=== PATIENT | male | born 1935 | race Caucasian/White ===

== ENCOUNTER 2019-09-17 10:23 | Inpatient (IN) ==
--- NOTE | 2019-09-17 11:24 | XRay Report ---
XR chest 1V portable CLINICAL HISTORY: Chest Pain nausea COMPARISON STUDY: 09/12/2011 FINDINGS: Components of congestive heart failure. There is present. Moderate cardiomegaly. Prominent pulmonary vasculature. Small left pleural effusion. Minimal right effusion. IMPRESSION: Congestive heart failure. Small bilateral pleural effusions. ACT 112: Negative or not required by law. The above report was generated using voice recognition software. It may contain grammatical, syntax or spelling errors. Electronically signed by: Rishi Lynch M.D. 09/17/2019 11:22 AM
[2019-09-17 11:35] LABS: INR 1.1 (0.9-1.1); Partial Thromboplastin Time 26.6 Seconds (21.0-31.0)
[2019-09-17 11:44] LABS: Albumin Level 3.6 gm/dl (3.4-5.0); BUN Creatinine Ratio 19.9 (10-20); Calcium 8.9 mg/dl (8.5-10.1); Creatinine Clr Calc Pharmacy 62.9 ml/min; Est GFR (African American) 86.1; Est GFR (Non-African American) 74.2
[2019-09-17 11:50] LABS: Albumin Globulin Ratio 0.9 (0.9-2); Bilirubin,Total 0.7 mg/dl (0.2-1); Total Protein 7.6 gm/dl (6.4-8.2); Troponin I 0.29 ng/ml (0-0.045)
[2019-09-17] MEDS ORDERED: ASPIRIN CHEW 324 MG PO STA (11:58)
[2019-09-17] MEDS ORDERED: METOPROLOL TARTRATE 1 MG/ML VIAL IV STA (11:58)
[2019-09-17] MEDS ORDERED: HEPARIN SODIUM/DEXTROSE 25,000 UNITS/500 ML BAG IV SCH (12:00)
[2019-09-17] MEDS ORDERED: METOPROLOL TARTRATE 1 MG/ML VIAL IV PRN (12:00)
[2019-09-17] MEDS ORDERED: Heparin IV Low Dose WITH Bolus IV STA (12:01)
[2019-09-17] MEDS ORDERED: HEPARIN SOD 5,000 UNIT/0.5 ML VIAL ONE (12:22)
[2019-09-17] MEDS: HEPARIN SODIUM/DEXTROSE 25,000 UNITS/500 ML BAG IV SCH (12:28)
--- NOTE | 2019-09-17 13:37 | History & Physical Report ---
Date of Service September 17, 2019 Assessment & Plan (1) CHF (congestive heart failure): Patient with apparent CHF radiographically and on exam. Historically has been noncompliant with medications. Will admit to a telemetry bed. Start slow diuresis with Lasix 40 mg IV daily. 1500 cc fluid restriction needs 2D echo to evaluate heart murmur. Check TSH, fasting lipids, hemoglobin A1c. We will ask cardiology to evaluate for further recommendations. (2) Non-ST elevation PA (NSTEMI): Elevated troponin. May be secondary to significant murmur and CHF. Agree with the ER physician and starting heparin drip. Patient was also given metoprolol and aspirin. Will trend cardiac enzymes. Ask cardiology as noted above further recommendations. History of Present Illness Primary Care Provider: NO PCP This is AN 83-year-old Sikh male that presents today complaining of worsening shortness of breath. Patient is accompanied by family members but all are very poor historians. History documented as able. Patient tells me has been having shortness of breath for approximately 1 week. This does not appear to be associated with chest pain, weight gain, or other features. He denies any recent febrile illness. He states that he is on no medications and that he is only on "herbs". Thinks he may be "full of fluid ". Further history could not be elicited from the patient and family. I do look back at old records and see if the patient was seen by a B[facility] T[facility]ER outpatient setting. This was on July 09, 2019. At that time he had presented with CHF along with possible aortic stenosis. He was advised to go to the emergency room for further evaluation. The patient was agreeable at that time but when I questioned the patient about it he does not seem to recall this visit and did not seek medical attention at that time. Allergies Allergy/AdvReac Type Severity Reaction Status Date / Time Penicillins Allergy Verified 09/17/19 10:56 Home Medications Home Medications Medication Instructions Recorded Confirmed Type [place] Powder 5 cap PO QAM 09/17/19 09/17/19 History Potassium 99mg 99 mg PO BID 09/17/19 09/17/19 History aspirin [Aspir-81] 81 mg PO HS 09/17/19 09/17/19 History coenzyme Q10 [CoQ-10] 0 mg PO DAILY 09/17/19 09/17/19 History cyanocobalamin (vitamin B-12) 1,000 mcg PO BID 09/17/19 09/17/19 History [Vitamin B-12] folic acid 0.8 mg PO BID 09/17/19 09/17/19 History Past Med/Surg History Medical History 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) Diastolic dysfunction (Acute 05/01/11) Hemolytic anemia (Acute 05/01/11) History of pleural effusion (Acute 05/01/11) Systolic dysfunction (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) Surgical History History of appendectomy Social History Preferred Language: Sri Lankan Communication Ability: Effective Director Of Graduate Admissions Required: No Beliefs That Will Affect Care: None Current Living Situation: Spouse and Family Other Information That Helps Us Care for You: No Feels Safe at Home: Yes Safety Concerns: Feels Safe At This Time Smoking Status: Never smoker Hx Alcohol Use: No Hx Substance Use: No Review of Systems Constitutional: no fever, no chills, no weakness, no weight loss and no weight gain Eyes: as per Subjective / HPI Respiratory: + dyspnea on exertion; no cough, no chest congestion and no dyspnea Cardiovascular: + dyspnea on exertion and + edema; no chest pain, no orthopnea, no palpitations and no lightheadedness Gastrointestinal: no abdominal pain, no nausea, no vomiting, no constipation and no diarrhea/loose stools Musculoskeletal: no back pain, no neck pain, no joint pain, no stiffness and no myalgia Integumentary: no rash Neurologic: no gait abnormality, no unsteadiness, no falls and no generalized weakness Physical Exam Constitutional: cooperative; no acute distress Neck: trachea midline, no thyromegaly Respiratory: normal respiratory effort Auscultation: + diminished lung sounds, + crackles and + rales; no rhonchi and no wheezes Cardiovascular: Rate/Rhythm: regular rate and regular rhythm Heart Sounds: normal S1, normal S2 and + murmur (Loud systolic ejection murmur) Vessels: + JVD Extremities: + edema (12+ pitting edema lower extremities) Gastrointestinal (Abdomen): Inspection/Auscultation: abdomen normal to inspection Percussion/Palpation: abdomen soft; abdomen nontender, no guarding, abdomen not rigid and no hepatosplenomegaly Musculoskeletal: Extremities: no clubbing Skin: no rashes, warm and dry Results & Data Vital Signs (Past 12 Hours) Vital Signs Temp Pulse Resp BP Pulse Ox 09/17/19 13:01 86 30 H 95 09/17/19 13:00 82 21 128/81 92 09/17/19 12:55 88 L 09/17/19 12:32 100 H 27 H 09/17/19 12:31 105 H 21 134/76 91 09/17/19 12:30 93 H 28 H 09/17/19 12:28 118 H 146/91 H 09/17/19 12:16 113 H 25 H 146/91 H 92 09/17/19 12:00 122 H 25 H 150/96 H 09/17/19 11:30 129 H 32 H 140/97 90 09/17/19 11:15 94 09/17/19 11:01 109 H 33 H 90 09/17/19 11:00 103 H 31 H 145/74 H 91 09/17/19 10:48 96 H 26 H 92 09/17/19 10:46 86 26 H 145/87 H 90 09/17/19 10:30 36.3 C L 120 H 20 137/75 93 Laboratory Results Sodium 139, creatinine 0.95 with a BUN of 19. Troponin is 0.290. CBC is pending Diagnostic Findings XR chest 1V portable CLINICAL HISTORY: Chest Pain nausea COMPARISON STUDY: 09/12/2011 FINDINGS: Components of congestive heart failure. There is present. Moderate cardiomegaly. Prominent pulmonary vasculature. Small left pleural effusion. Minimal right effusion. IMPRESSION: Congestive heart failure. Small bilateral pleural effusions. PG Care Time/CCT Total # of Minutes Spent Total Time Spent with Patient: Total time spent is greater than 50% in coordination of care (as documented) at patient's floor/unit and/or counseling patient: Coding Level of Care Code 91958 Initial Inpt Care Lvl 3 Diagnoses CHF (congestive heart failure) I50.9 Heart failure chronicity: acute Heart failure type: unspecified Non-ST elevation PA (NSTEMI) I21.4 (1) CHF (congestive heart failure) Heart failure chronicity: acute Heart failure type: unspecified Qualified Code(s): I50.9 - Heart failure, unspecified
[2019-09-17 14:30] LABS: Basophils # (auto) 0.06 K/uL (0-0.2); Basophils % (auto) 0.8 %; Eosinophils # (auto) 0.15 K/uL (0-0.5); Eosinophils % (auto) 1.9 %; Hematocrit (blood only) 44.3 % (42-52); Hemoglobin 14.6 g/dL (14.0-18.0); Immature Granulocytes # (auto) 0.02 K/uL (0.00-0.02); Immature Granulocytes % (auto) 0.3 %; Lymphocytes # (auto) 1.28 K/uL (1.2-3.4); Lymphocytes % (auto) 16.6 %; Mean Corpuscular Hemoglobin 28.2 pg (25-34); Mean Corpuscular Volume 85.7 fL (80-100); Mean Platelet Volume 10.7 fL (7.4-10.4); Monocytes # (auto) 0.88 K/uL (0.11-0.59); Monocytes % (auto) 11.4 %; Neutrophils # (auto) 5.34 K/uL (1.4-6.5); Platelet Count 184 K/uL (130-400); RDW Coefficient of Variation 15.4 % (11.5-14.5); RDW Standard Deviation 48.3 fL (36.4-46.3); Red Blood Count 5.17 M/uL (4.7-6.1); White Blood Count 7.73 K/uL (4.8-10.8)
[2019-09-17] MEDS ORDERED: NITROGLYCERIN SL 0.4 MG/TAB TAB SL PRN (15:44)
[2019-09-17] MEDS ORDERED: ACETAMINOPHEN 325 MG TAB PO PRN (15:44)
[2019-09-17] MEDS ORDERED: FUROSEMIDE 40 MG/4 ML VIAL IV STA (15:44)
[2019-09-17] MEDS ORDERED: ONDANSETRON INJ 2 MG/ML 2 ML VIAL IV PRN (15:44)
[2019-09-17] MEDS ORDERED: FUROSEMIDE 40 MG in SYRINGE 0 ML IV ONE (16:00)
--- NOTE | 2019-09-17 16:41 | Emergency Department Note ---
Entered by Yue Hooks acting as a scribe for Tres Cisneros DO History of Present Illness General Chief complaint: Cardiac Assessment Stated complaint: afib sent by [facility] Source: patient History of Present Illness Onset (ago): week(s) 1 Location: left (lung) and right (lung) Pain Consistency: + other (persistent) Quality: + other (shortness of breath) Relieved By: + other (sitting up straight) Exacerbated By: + other (lying flat) Associated symptoms: + cough and + shortness of breath; no chest pain, no fever/ chills and no nausea/vomiting Treatments prior to arrival: none The patient is an 83 year old male presenting to the Emergency Department co mplaining of persistent shortness of breath starting 1 week ago. The patient reports that he is short of breath. He states that he has a cough that sometimes produces a mucous. He explains that his shortness of breath worsens when he lies flat and improves when he sitting up. 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 He adds that he doesnt follow with a PCP and went to [facility] REACTOR TECHNICIAN who referred the patient to the [facility] Emergency Department. The patient reports that he has been smoking pipe his entire life. He states that he smokes his pipe about 6 times per day. He notes that he doesnt want CPR if he were to go into cardiac arrest. The patient denies chest pain, fevers, chills, nausea, vomiting and abdominal pain. Home Medications Home Medications Medication Instructions Recorded Confirmed Type [place] Silk Powder 5 cap PO QAM 09/17/19 09/17/19 History Potassium 99mg 99 mg PO BID 09/17/19 09/17/19 History aspirin [Aspir-81] 81 mg PO HS 09/17/19 09/17/19 History coenzyme Q10 [CoQ-10] 0 mg PO DAILY 09/17/19 09/17/19 History cyanocobalamin (vitamin B-12) 1,000 mcg PO BID 09/17/19 09/17/19 History [Vitamin B-12] folic acid 0.8 mg PO BID 09/17/19 09/17/19 History Allergies Allergy/AdvReac Type Severity Reaction Status Date / Time Penicillins Allergy Verified 09/17/19 10:56 Past Med/Surg History Medical History 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) Diastolic dysfunction (Acute 05/01/11) Hemolytic anemia (Acute 05/01/11) History of pleural effusion (Acute 05/01/11) Systolic dysfunction (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) Surgical History History of appendectomy Social History Preferred Language: Irish Communication Ability: Effective Bead Supervisor Required: No Beliefs That Will Affect Care: None Current Living Situation: Spouse and Family Other Information That Helps Us Care for You: No Feels Safe at Home: Yes Safety Concerns: Feels Safe At This Time Smoking Status: Never smoker Hx Alcohol Use: No Hx Substance Use: No Review of Systems See HPI for pertinent positives & negatives. and A total of 10 systems reviewed and were otherwise negative Physical Exam Vital Signs Vital Signs - 24 hr 09/17/19 10:30 09/17/19 10:46 09/17/19 10:48 Temperature 36.3 C L Temperature Source Oral Pulse Rate 120 H 86 96 H Pulse Rate from SpO2 Sensor 90 102 H Respiratory Rate 20 26 H 26 H Respiratory Effort / Characteristics Non-Labored Spontaneous Respiratory Depth Normal Respiratory Pattern Regular Blood Pressure 137/75 145/87 H Blood Pressure Mean 95 125 Blood Pressure Position Sitting Pulse Oximetry 93 90 92 Oxygen Delivery Method Room Air Room Air Room Air Oxygen Flow Rate Sepsis Recent Fever Within 48 Hours No Sepsis New/Unexplained Change in Mental Status No Sepsis Action Taken by Nursing No Action Required 09/17/19 11:00 09/17/19 11:01 09/17/19 11:15 Temperature Temperature Source Pulse Rate 103 H 109 H Pulse Rate from SpO2 Sensor 100 H 99 H Respiratory Rate 31 H 33 H Respiratory Effort / Characteristics Respiratory Depth Respiratory Pattern Blood Pressure 145/74 H Blood Pressure Mean 82 Blood Pressure Position Pulse Oximetry 91 90 94 Oxygen Delivery Method Room Air Room Air Room Air Oxygen Flow Rate Sepsis Recent Fever Within 48 Hours Sepsis New/Unexplained Change in Mental Status Sepsis Action Taken by Nursing 09/17/19 11:30 09/17/19 12:00 09/17/19 12:16 Temperature Temperature Source Pulse Rate 129 H 122 H 113 H Pulse Rate from SpO2 Sensor 122 H 110 H Respiratory Rate 32 H 25 H 25 H Respiratory Effort / Characteristics Respiratory Depth Respiratory Pattern Blood Pressure 140/97 150/96 H 146/91 H Blood Pressure Mean 113 123 99 Blood Pressure Position Pulse Oximetry 90 92 Oxygen Delivery Method Room Air Oxygen Flow Rate Sepsis Recent Fever Within 48 Hours Sepsis New/Unexplained Change in Mental Status Sepsis Action Taken by Nursing 09/17/19 12:28 09/17/19 12:30 09/17/19 12:31 Temperature Temperature Source Pulse Rate 118 H 93 H 105 H Pulse Rate from SpO2 Sensor 109 H Respiratory Rate 28 H 21 Respiratory Effort / Characteristics Respiratory Depth Respiratory Pattern Blood Pressure 146/91 H 134/76 Blood Pressure Mean 94 Blood Pressure Position Pulse Oximetry 91 Oxygen Delivery Method Room Air Oxygen Flow Rate Sepsis Recent Fever Within 48 Hours Sepsis New/Unexplained Change in Mental Status Sepsis Action Taken by Nursing 09/17/19 12:32 09/17/19 12:55 09/17/19 13:00 Temperature Temperature Source Pulse Rate 100 H 82 Pulse Rate from SpO2 Sensor 127 H Respiratory Rate 27 H 21 Respiratory Effort / Characteristics Respiratory Depth Respiratory Pattern Blood Pressure 128/81 Blood Pressure Mean 88 Blood Pressure Position Pulse Oximetry 88 L 92 Oxygen Delivery Method Room Air Nasal Cannula Oxygen Flow Rate 4 Sepsis Recent Fever Within 48 Hours Sepsis New/Unexplained Change in Mental Status Sepsis Action Taken by Nursing 09/17/19 13:01 09/17/19 13:30 Temperature Temperature Source Pulse Rate 86 82 Pulse Rate from SpO2 Sensor 174 H 90 Respiratory Rate 30 H 28 H Respiratory Effort / Characteristics Respiratory Depth Respiratory Pattern Blood Pressure 142/68 H Blood Pressure Mean 73 Blood Pressure Position Pulse Oximetry 95 93 Oxygen Delivery Method Nasal Cannula Nasal Cannula Oxygen Flow Rate 4 4 Sepsis Recent Fever Within 48 Hours Sepsis New/Unexplained Change in Mental Status Sepsis Action Taken by Nursing GENERAL: Patient is sitting up in bed. Chronically ill appearing. Nasal cannula in place. EYE EXAM: normal conjunctiva. OROPHARYNX: no exudate, no erythema, lips, buccal mucosa, and tongue normal and mucous membranes are moist NECK: supple, no nuchal rigidity, no adenopathy, non-tender LUNGS: Faint rhonchi bilaterally. Normal chest wall mechanics HEART: +ANAHI, irregularly irregular ABDOMEN: abdomen soft, non-tender, normo-active bowel sounds, no masses, no rebound or guarding. BACK: Back is symmetrical on inspection and there is no deformity, no midline tenderness, no CVA tenderness. SKIN: no rashes and no bruising UPPER EXTREMITIES: upper extremities are grossly normal. LOWER EXTREMITIES: Mild pitting edema. NEURO EXAM: Normal sensorium, cranial nerves II-XII grossly intact, normal speech, no gross weakness of arms, no gross weakness of legs. Course Course ED COURSE: Vital signs were reviewed and showed tachycardia. The patients medical record was reviewed The above diagnostic studies were performed and reviewed. ED treatments and interventions as stated above. 1106: The patient was evaluated in room B4B. A complete history and physical examination was performed. 1157: I discussed the patients case with Dr. Clemens aquatics instructor. He recommends lowing the patients rate down. He reports that the patient doesnt need cardiac catheterization at this time. 1221: I discussed the patients case with Dr. Atif DAVIS hospitalist. He will evaluate the patient for further management. 1230: I updated the patient at this time. He denied bleeding risk factors. 1255: Upon reevaluation, I discussed my findings with the patient and he unde rstands and agrees with the treatment plan. Based on the patients age, coexisting illnesses, exam and lab findings the decision to treat as an inpatient was made. The patient remained stable while under my care. The patient will be evaluated for further management. Administered Medications Heparin Sodium/Dextrose (Heparin Sodium/Dextrose) 25,000 units in 500 mls @ 18 mls/hr IV .Q24H [facility]; Protocol Stop: 10/17/19 12:14 Last Admin: 09/17/19 12:28 Dose: 900 units/hr, 18 mls/hr Documented by: [id number] Cosigned by: [id number] Metoprolol Tartrate (Lopressor) 5 mg IV Q5M PRN PRN Reason: Tachycardia Stop: 10/17/19 11:59 Last Admin: 09/17/19 12:28 Dose: 5 mg Documented by: [id number] Discontinued Medications Aspirin (Aspirin) 324 mg PO NOW STA Stop: 09/17/19 11:59 Last Admin: 09/17/19 12:26 Dose: 324 mg Documented by: [id number] Heparin Sodium (Porcine) (Heparin Sodium (Porcine)) Confirm Administered Dose 5,000 units .ROUTE .STK-MED ONE Stop: 09/17/19 12:23 Last Admin: 09/17/19 12:28 Dose: 4,000 units Documented by: [id number] Cosigned by: [id number] Heparin Sodium/Dextrose () 1 ea IV NOW STA; Protocol Stop: 09/17/19 12:02 Last Admin: 09/17/19 12:30 Dose: Not Given Documented by: [id number] Metoprolol Tartrate (Lopressor) 2.5 mg IV NOW STA Stop: 09/17/19 11:59 Last Admin: 09/17/19 12:45 Dose: Not Given Documented by: [id number] Critical Care Time Critical Care Time: Yes Total Critical Care Time: 75 I have personally spent 75 minutes of critical care time in the direct management of this patient. This includes bedside care, interpretation of diagnostic studies, and testing, discussion with consultants, patient, and family members, and other required patient management activities. This 75 minutes is in excess of all separately billable procedures. Medical Decision Making Differential Diagnosis Differential diagnoses includes but is not limited to pneumonia, bronchitis, COPD/Asthma exacerbation, pneumothorax, pulmonary embolism, congestive heart fa ilure, acute coronary syndrome. Medical Records Attestation: I reviewed the patient's medical records. Home Medications Current Medication List: was personally reviewed by me Laboratory Data Attestation: I reviewed the patient's lab results. Result diagrams: 09/17/19 11:00 09/17/19 11:00 Lab Results 09/17/19 09/17/19 09/17/19 Range/Units 11:00 11:00 11:00 WBC 7.73 (4.8-10.8) K/uL RBC 5.17 (4.7-6.1) M/uL Hgb 14.6 (14.0-18.0) g/dL Hct 44.3 (42-52) % MCV 85.7 (80-100) fL MCH 28.2 (25-34) pg MCHC 33.0 (32-36) g/dL RDW Std Deviation 48.3 H (36.4-46.3) fL RDW Coeff of Luis 15.4 H (11.5-14.5) % Plt Count 184 (130-400) K/uL MPV 10.7 H (7.4-10.4) fL Immature Gran % (Auto) 0.3 % Neut % (Auto) 69.0 % Lymph % (Auto) 16.6 % Hayes % (Auto) 11.4 % Eos % (Auto) 1.9 % Baso % (Auto) 0.8 % Immature Gran # (Auto) 0.02 (0.00-0.02) K/uL Neut # (Auto) 5.34 (1.4-6.5) K/uL Lymph # (Auto) 1.28 (1.2-3.4) K/uL Hayes # (Auto) 0.88 H (0.11-0.59) K/uL Eos # (Auto) 0.15 (0-0.5) K/uL Baso # (Auto) 0.06 (0-0.2) K/uL PT 11.0 (9.0-12.0) Seconds INR 1.1 (0.9-1.1) APTT 26.6 (21.0-31.0) Seconds PTT Ratio 1.0 Sodium 139 (136-145) mmol/L Potassium 4.0 (3.5-5.1) mmol/L Chloride 108 H (98-107) mmol/L Carbon Dioxide 24 (21-32) mmol/L Anion Gap 7.0 (3-11) BUN 19 H (7-18) mg/dl Creatinine 0.95 (0.6-1.4) mg/dl Est Cr Clr Drug Dosing 62.9 ml/min Est GFR ( Amer) 86.1 Est GFR (Non-Af Amer) 74.2 BUN/Creatinine Ratio 19.9 (10-20) Glucose 93 (70-99) mg/dl Calcium 8.9 (8.5-10.1) mg/dl Total Bilirubin 0.7 (0.2-1) mg/dl AST 21 (15-37) U/L ALT 31 (12-78) U/L Alkaline Phosphatase 100 (45-117) U/L Troponin I 0.290 H* (0-0.045) ng/ml Total Protein 7.6 (6.4-8.2) gm/dl Albumin 3.6 (3.4-5.0) gm/dl Globulin 4.0 (2.5-4.0) gm/dl Albumin/Globulin Ratio 0.9 (0.9-2) Lipase 44 L (73-393) U/L Imaging Data Radiologist's Impression: Radiology results as stated below per my review and the radiologist's interpretation: XR chest 1V portable CLINICAL HISTORY: Chest Pain nausea COMPARISON STUDY: 09/12/2011 FINDINGS: Components of congestive heart failure. There is present. Moderate cardiomegaly. Prominent pulmonary vasculature. Small left pleural effusion. Minimal right effusion. IMPRESSION: Congestive heart failure. Small bilateral pleural effusions. ACT 112: Negative or not required by law. The above report was generated using voice recognition software. It may contain grammatical, syntax or spelling errors. Electronically signed by: Rishi Lynch M.D. 09/17/2019 11:22 AM ECG Data Attestation: I personally reviewed and interpreted this ECG as follows: Indication: + SOB/dyspnea Rate (beats per minute): 117 Rhythm: + atrial fibrillation ECG Intervals/blocks: + Right Bundle branch block ECG [place]: + Left axis deviation ECG ST segments: + ST depression (ST depression in aterior and lateral leads ) and + T-wave inversions Comparison ECG Date: from (09/03/11) Change: the following changes noted (LAD is new. ST depression are new. TWI in v4 v6 is old. ) Blood Pressure Blood Pressure Findings: Elevated blood pressure Blood Pressure Disposition: further management by hospitalist ROSALINDA Narrative Patient is an 83-year-old male who presents the ER referred in by PCP for shortness of breath. Upon presentation he is found to be in A. fib with a heart rate tracking anywhere from the 90s to the low 120s. He admits to a persistent shortness of breath which has been present for the past week. On exam he does have positive systolic ejection murmur and ST depressions along with T WI comparison to his previous EKG. His troponin was elevated. Chest x-ray is cons istent with CHF. IV was established blood work was obtained and showed no significant leukocytosis or anemia. INR unremarkable. BMP along with LFTs and lipase was unremarkable. Discussed case with Dr. Clemens from cardiology. Recommended rate controlling and repeating troponins. Patient was given aspirin. Patient was placed on heparin drip and bolus after discussion of bleeding risk. Was given Lopressor. Heart rate trended down to the 80s. Discussed with the hospitalist and admitted for an NSTEMI with CHF and new systolic murmur. Cardiac Monitoring: An order was placed for continuous cardiac monitoring. The monitor shows a rate of 117 with A-fib. Impression & Plan Non-ST elevation [place] (NSTEMI), Abnormal EKG, CHF (congestive heart failure) Discharge Plan Visit Data *Final* Discharge Date/Time: 09/17/19 15:02 Chief Complaint: Cardiac Assessment Stated Complaint: afib sent by [facility] ED Provider: Tres Cisneros Discharge Problem: Non-ST elevation [place] (NSTEMI), Abnormal EKG, CHF (congestive heart failure) Patient Disposition: Admitted As Inpatient Discharge Instructions Interventions: ED Discharge Assessment Last Done: 09/17/19 15:02 Discharge Problem: CHF (congestive heart failure) Qualifiers: Heart failure type: unspecified Heart failure chronicity: acute Qualified Code(s): I50.9 - Heart failure, unspecified The scribe's documentation has been prepared under my direction and personally reviewed by me in its entirety. I confirm that the note above accurately reflects all work, treatment, procedures, and medical decision making performed by me.
[2019-09-17 19:30] LABS: Partial Thromboplastin Ratio 1.2; Partial Thromboplastin Time 31.3 Seconds (21.0-31.0)
[2019-09-17] MEDS ORDERED: HEPARIN IV BOLUS 4,500 UNITS in SYRINGE 0 ML IV ONE (20:15)
[2019-09-17] MEDS: ASPIRIN 81 MG ECTAB PO SCH (20:51)
--- NOTE | 2019-09-17 22:44 | Cardiology Consultation ---
Date of Consultation September 17, 2019 Assessment & Plan (1) CHF (congestive heart failure): 2. New onset atrial fibrillation with RVR 3. Elevated troponin 4. COPD with ongoing tobacco abuse 5. Prior mild mitral regurgitation Patient here with acute onset shortness of breath over the last several days found to be in new onset atrial fibrillation and acute heart failure. Patient found to have mildly elevated troponin with T wave inversions on EKG that have been previously noted going back years. Patient has never had significant chest pain. At this point relatively low suspicion that primary goat driver of presentation is an ACS event but will continue to trend troponin, and check echocardiogram in a.m. Briefly discussed with patient additional ischemic evaluation and patient reluctant to proceed primarily in the setting of cost concerns. With low level troponin, no chest pain symptoms conservative management likely reasonable. For now agree with rate control, diuresis and anticoagulation with heparin. Would start p.o. metoprolol 25 mg twice daily. Further recommendations in a.m. following echo, clinical course. History of Present Illness Attending Physician: Perry Srivastava, History of Present Illness Mr. Hernandez is an 83-year-old man who presented to [facility] with 2 days of shortness of breath found to be in new onset A. fib with RVR, acute heart failure with elevated troponin. Prior past medical issues include Chronic heart failure with mild LV dysfunction, EF 45% 04/2011, recurrent pleural effusions requiring thoracentesis, autoimmune hemolytic anemia, diverticulitis, prior left lower extremity DVT, hypothyroidism, COPD and ongoing tobacco abuse. He is currently not taking any medications, just herbal supplements. Was seen by primary care in June 2019 for shortness of breath. Thought to be in acute heart failure at that time with new murmur and recommended that he present to ED at that time. Today states had been in his usual state of health until 2-3 days ago. Shortness of breath with exertion and increasingly with rest. No chest pain. No palpitations. No presyncope. Does report worsened orthopnea and lower extremity edema above baseline over this time. In ED tachypneic, hypoxic, hemodynamically stable. A. fib with heart rates in the 130s. Given IV metoprolol and started on heparin infusion. Chest x-ray with bilateral infiltrates and small bilateral pleural effusions. Given IV Lasix x1. Troponin positive at 0.29, subsequently up to 0.336. ECG showed atrial fibrillation/flutter with variable conduction, old right bundle branch block, left fascicular block and anterior T wave inversions previously noted on prior EKGs back as far as 2011. Social history: with 5 kids. Yarsanism. Still smokes his pipe daily. No alcohol. Allergies Allergy/AdvReac Type Severity Reaction Status Date / Time Penicillins Allergy Verified 09/17/19 10:56 Home Medications Home Medications Medication Instructions Recorded Confirmed Type [place] Powder 5 cap PO QAM 09/17/19 09/17/19 History Potassium 99mg 99 mg PO BID 09/17/19 09/17/19 History aspirin [Aspir-81] 81 mg PO HS 09/17/19 09/17/19 History coenzyme Q10 [CoQ-10] 0 mg PO DAILY 09/17/19 09/17/19 History cyanocobalamin (vitamin B-12) 1,000 mcg PO BID 09/17/19 09/17/19 History [Vitamin B-12] folic acid 0.8 mg PO BID 09/17/19 09/17/19 History Patient History Medical History 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) Diastolic dysfunction (Acute 05/01/11) Hemolytic anemia (Acute 05/01/11) History of pleural effusion (Acute 05/01/11) Systolic dysfunction (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) Surgical History History of appendectomy Social History Preferred Language: Qatari Communication Ability: Effective Shingle Bolt Cutter Required: No Beliefs That Will Affect Care: None Current Living Situation: Spouse and Family Other Information That Helps Us Care for You: No Feels Safe at Home: Yes Safety Concerns: Feels Safe At This Time Smoking Status: Never smoker Hx Alcohol Use: No Hx Substance Use: No Review of Systems Review of Systems: All systems reviewed & are unremarkable except as noted in HPI & below Physical Exam Physical Exam: General: Comfortable, no acute distress Eyes: Sclerae anicteric, extraocular movements intact HENT: Oropharynx clear mucous membranes moist Neck: Normal carotid upstrokes. JVD difficult to assess Lungs: Decreased breath sounds at the bases bilaterally with few crackles Cardiac: Distant heart sounds, irregular, 2 out of 6 systolic ejection murmur heard best at the left upper sternal border. 2/6 holosystolic murmur heard at the apex Vascular: 2+ radial. Abdomen: Soft, nontender Extremities: Well perfused, trace to 1+ lower extreme edema with chronic venous stasis changes Neuro: Nonfocal Psych: Alert orient x3, normal affect and mood Results & Data ([facility]) Vital Signs (Past 12 Hours) Vital Signs Temp Pulse Pulse Resp BP BP BP 09/17/19 19:14 97.3 F L 105 H 20 126/74 09/17/19 15:45 79 09/17/19 15:44 97.3 F L 97 H 22 129/76 09/17/19 15:01 108 H 20 09/17/19 15:00 100 H 29 H 128/90 09/17/19 14:30 82 27 H 119/72 09/17/19 14:01 97 H 27 H 09/17/19 14:00 76 23 124/76 09/17/19 13:30 82 28 H 142/68 H 09/17/19 13:01 86 30 H 09/17/19 13:00 82 21 128/81 09/17/19 12:55 09/17/19 12:32 100 H 27 H 09/17/19 12:31 105 H 21 134/76 09/17/19 12:30 93 H 28 H 09/17/19 12:28 118 H 146/91 H 09/17/19 12:16 113 H 25 H 146/91 H 09/17/19 12:00 122 H 25 H 150/96 H 09/17/19 11:30 129 H 32 H 140/97 09/17/19 11:15 09/17/19 11:01 109 H 33 H 09/17/19 11:00 103 H 31 H 145/74 H 09/17/19 10:48 96 H 26 H 09/17/19 10:46 86 26 H 145/87 H 09/17/19 10:30 97.3 F L 120 H 20 137/75 Pulse Ox 09/17/19 19:14 92 09/17/19 15:45 09/17/19 15:44 96 09/17/19 15:01 93 09/17/19 15:00 92 09/17/19 14:30 94 09/17/19 14:01 94 09/17/19 14:00 93 09/17/19 13:30 93 09/17/19 13:01 95 09/17/19 13:00 92 09/17/19 12:55 88 L 09/17/19 12:32 09/17/19 12:31 91 09/17/19 12:30 09/17/19 12:28 09/17/19 12:16 92 09/17/19 12:00 09/17/19 11:30 90 09/17/19 11:15 94 09/17/19 11:01 90 09/17/19 11:00 91 09/17/19 10:48 92 09/17/19 10:46 90 09/17/19 10:30 93 PG Care Time/CCT Total # of Minutes Spent Total Time Spent with Patient: Total time spent is greater than 50% in coordination of care (as documented) at patient's floor/unit and/or counseling patient: Coding Level of Care Code 22984 Initial Inpt Care Lvl 3 Diagnoses CHF (congestive heart failure) I50.9 Heart failure chronicity: acute Heart failure type: unspecified (1) CHF (congestive heart failure) Heart failure chronicity: acute Heart failure type: unspecified Qualified Code(s): I50.9 - Heart failure, unspecified
[2019-09-17] MEDS: METOPROLOL TARTRATE 25 MG TAB PO SCH (23:44)
[2019-09-18 03:25] LABS: Basophils # (auto) 0.04 K/uL (0-0.2); Basophils % (auto) 0.5 %; Eosinophils # (auto) 0.18 K/uL (0-0.5); Eosinophils % (auto) 2.4 %; Hematocrit (blood only) 45.5 % (42-52); Hemoglobin 15.2 g/dL (14.0-18.0); Immature Granulocytes # (auto) 0.02 K/uL (0.00-0.02); Immature Granulocytes % (auto) 0.3 %; Lymphocytes # (auto) 1.12 K/uL (1.2-3.4); Lymphocytes % (auto) 15.2 %; Mean Corpuscular Hemoglobin 28.6 pg (25-34); Mean Corpuscular Hgb Conc 33.4 g/dL (32-36); Mean Corpuscular Volume 85.5 fL (80-100); Mean Platelet Volume 10.2 fL (7.4-10.4); Monocytes # (auto) 0.88 K/uL (0.11-0.59); Neutrophils # (auto) 5.11 K/uL (1.4-6.5); Neutrophils % (auto) 69.6 %; Platelet Count 164 K/uL (130-400); RDW Coefficient of Variation 15.6 % (11.5-14.5); RDW Standard Deviation 48.1 fL (36.4-46.3); Red Blood Count 5.32 M/uL (4.7-6.1); White Blood Count 7.35 K/uL (4.8-10.8)
[2019-09-18 03:44] LABS: Partial Thromboplastin Ratio 1.4; Partial Thromboplastin Time 38.7 Seconds (21.0-31.0)
[2019-09-18 03:46] LABS: BUN Creatinine Ratio 19.3 (10-20); Calcium 8.9 mg/dl (8.5-10.1); Creatinine Clr Calc Pharmacy 48.3 ml/min; Est GFR (Non-African American) 54.3; Magnesium 2.3 mg/dl (1.8-2.4)
[2019-09-18 04:00] LABS: Thyroid Stimulating Hormone 4.44 uIu/ml (0.300-4.500); Troponin I 0.292 ng/ml (0-0.045)
[2019-09-18] MEDS ORDERED: HEPARIN IV BOLUS 4,500 UNITS in SYRINGE 0 ML IV ONE (04:30)
[2019-09-18 05:56] LABS: Estimated Average Glucose 100 mg/dl; Hemoglobin A1C 5.1 % (4.5-5.6)
[2019-09-18] MEDS: FUROSEMIDE 40 MG in SYRINGE 0 ML IV SCH (08:35)
[2019-09-18] MEDS: METOPROLOL TARTRATE 25 MG TAB PO SCH ×2 (08:35→20:10)
[2019-09-18 11:30] LABS: Partial Thromboplastin Ratio 1.7
[2019-09-18 11:34] LABS: Partial Thromboplastin Time 45.3 Seconds (21.0-31.0)
--- NOTE | 2019-09-18 11:34 | Cardiology Progress Note ---
Date of Service September 18, 2019 Assessment & Plan (1) CHF (congestive heart failure): 2. New onset atrial fibrillation with RVR 3. Elevated troponin 4. Moderate to severe aortic stenosis 5. COPD Reviewed patient's echocardiogram from this a.m. Has moderate to severe aortic stenosis but preserved LV function, moderate LVH and diastolic dysfunction. Symptomatically improved today, breathing comfortably off oxygen. Reduced congestion on exam. Heart rate reasonably controlled with asymptomatic bradycardia/pauses overnight while sleeping. Troponin flat, EKG unchanged and has remained chest pain-free. Low suspicion for ACS and will defer further ischemic evaluation. Can transition to p.o. Lasix 40 mg daily on discharge Stressed importance of low-salt diet, daily weights Continue metoprolol 25 mg twice daily, okay with heart rates less than 110 Elevated cardioembolic risk with A. fib and would recommend long-term anticoagulation. Unsure about feasibility, long-term compliance. Would discuss options with case management. Our office could provide samples of DOAC for a period of time. Ideally would keep 1 more day to monitor on telemetry while titrated rate control but if patient feels strongly about leaving today not unreasonable. He will need close primary care, cardiology follow-up for his diastolic heart failure and moderate to severe aortic stenosis. Admission and Anticipated Discharge Date Admission Date: September 17, 2019 Subjective Patient feeling well today. Denies any chest pain. Breathing improved. Denies any palpitations. Telemetry reviewedremains in atrial fibrillation, heart rates variable 80s to 100s, up to the 120s when gets up. Periods of bradycardia overnight down to 37 with one 3.5-second pause. Review of Systems Review of Systems: All systems reviewed & are unremarkable except as noted in HPI & below Physical Exam Physical Exam: General: Comfortable, no acute distress HEENT: Sclerae anicteric, mucous membranes moist Lungs: Minimally decreased breath sounds at the bases bilaterally otherwise clear Cardiac: Irregularly irregular, 2 out of 6 systolic ejection murmur Abdomen: Soft, nontender Extremities: Warm, well perfused, no edema. Neuro: Nonfocal Psych: Alert orient x3, normal affect and mood Results & Data ([facility]) Vital Signs (Past 12 Hours) Vital Signs Temp Pulse Pulse Resp BP Pulse Ox 09/18/19 07:51 97.5 F L 95 H 17 151/83 H 91 09/18/19 04:06 97.5 F L 92 H 19 113/70 89 L 09/17/19 23:43 97.7 F 82 20 127/68 91 PG Care Time/CCT Total # of Minutes Spent Total Time Spent with Patient: Total time spent is greater than 50% in coordination of care (as documented) at patient's floor/unit and/or counseling patient: Coding Level of Care Code 78449 Subseq Hosp Care Lvl 3 Diagnoses CHF (congestive heart failure) I50.9 Heart failure chronicity: acute Heart failure type: unspecified (1) CHF (congestive heart failure) Heart failure chronicity: acute Heart failure type: unspecified Qualified Code(s): I50.9 - Heart failure, unspecified
[2019-09-18] MEDS ORDERED: HEPARIN IV BOLUS 3,000 UNITS in SYRINGE 0 ML IV ONE ×2 (11:49→20:15)
[2019-09-18] MEDS: HEPARIN SODIUM/DEXTROSE 25,000 UNITS/500 ML BAG IV SCH (12:14)
--- NOTE | 2019-09-18 14:57 | Electrocardiogram Report ---
Test Reason : Blood Pressure : / mmHG Vent. Rate : 075 BPM Atrial Rate : 000 BPM P-R Int : 000 ms QRS Dur : 148 ms QT Int : 458 ms P-R-T Axes : 000 -72 251 degrees QTc Int : 511 ms Atrial fibrillation Right bundle branch block Left anterior fascicular block Bifascicular block T wave abnormality, consider inferolateral ischemia Abnormal ECG When compared with ECG of 17-SEP-2019 10:38, (unconfirmed) T wave inversion now evident in Inferior leads Confirmed by Ezra Sotelo ([id number]) on 09/18/2019 2:56:26 PM Referred By: REFERRED SELF Confirmed By:Derrick Sotelo
--- NOTE | 2019-09-18 15:07 | Electrocardiogram Report ---
Test Reason : Blood Pressure : / mmHG Vent. Rate : 089 BPM Atrial Rate : 088 BPM P-R Int : 000 ms QRS Dur : 146 ms QT Int : 412 ms P-R-T Axes : 000 -67 061 degrees QTc Int : 501 ms Atrial fibrillation with premature ventricular or aberrantly conducted complexes Right bundle branch block Left anterior fascicular block Bifascicular block T wave abnormality, consider lateral ischemia Abnormal ECG When compared with ECG of 03-SEP-2011 06:48, Atrial fibrillation has replaced Sinus rhythm Nonspecific T wave abnormality, improved in Inferior leads Confirmed by Ezra Sotelo ([id number]) on 09/18/2019 3:06:25 PM Referred By: REFERRED SELF Confirmed By:Derrick Sotelo
--- NOTE | 2019-09-18 18:31 | Hospitalist Progress Note ---
Date of Service September 18, 2019 Assessment & Plan (1) CHF (congestive heart failure): With acute on chronic diastolic CHF, LVEF preserved Patient presented with patient with progressively worsening shortness of breath Had evidence of pulmonary edema on chest x-ray and lower extremity edema Historically has been noncompliant with medications. -Now significantly improved after 2 doses of IV Lasix and has achieved significant diuresis Echocardiogram with LVEF 40-45%, moderate to severe aortic stenosis Rapid atrial fibrillation also likely contributing He does add salt to his food and had no idea of his diagnosis of CHF in the past His EF is unchanged since 2010 as per cardiology notes TSH is upper limits of normal, fasting lipid panel actually does not look too bad Appreciate cardiology consultation -Continue 1500 cc fluid restriction, continue strict I's and O's and daily weig hts -Continue Lasix 40 mg IV once daily -Follow electrolytes and replace as needed -Will send out on Lasix 40 mg p.o. once daily most likely -Patient agreeable to following up with cardiology at the [place] office with Dr. Clemens -Rate control as below for atrial fibrillation with metoprolol (2) Atrial fibrillation: Presented here with rapid atrial fibrillation likely contributing to acute on chronic diastolic CHF as above He had no real awareness of his atrial fibrillation Denies any syncope or presyncope Started on metoprolol 25 mg p.o. twice daily and has had some asymptomatic bradycardia with 3.5-second pause overnight with rates into the high 20s and 30s at times -Cardiology following-okay with bradycardia for now On heparin drip for anticoagulation-discussed options with patient and he seemed more interested in going on a DOAC as he would not want PT/INR testing frequently-we will provide him with a 1 month free card and then he can get samples at the cardiology office if it is unaffordable at the pharmacy-would recommend Xarelto or Eliquis -Continue telemetry monitoring - will follow-up with cardiology as an outpatient (3) Abnormal EKG: With inferior T wave inversions and lateral T wave inversions, left anterior fascicular block and right bundle branch block, atrial fibrillation Unchanged from previous Cardiology following Troponins mildly elevated and flat, no evidence of acute coronary syndrome, no chest pain at any time (4) Aortic stenosis: Moderate to severe on echocardiogram here No evidence of angina, syncope, with LVEF 40-45% as above which is unchanged since 2010 -To be followed as an outpatient (5) Non-ST elevation VT (NSTEMI): Elevated troponin secondary to myocardial demand ischemia in the setting of rapid atrial fibrillation -No need for ischemic evaluation at this time (6) Acquired hemolytic anemia: Noted -Follow CBC (7) DVT prophylaxis: Heparin drip Disposition-remain on PCU overnight and if rates controlled and patient still feeling well, can discharged home tomorrow Admission and Anticipated Discharge Date Admission Date: September 17, 2019 Anticipated date of discharge: 09/19/19 Subjective Patient feels well and wants to know when he can go home. Denies any further shortness of breath and is much improved since admission. He is able to lie flat. He denies cough. Denies chest pain or lightheadedness. No abdominal pain or nausea. He reports he is eating too much. He does report that he had salt to his food occasionally at home. Telemetry with atrial fibrillation with rates into the high 20s and 30s at times asymptomatic while sleeping, and as high as the 140s with minimal exertion. Review of Systems Review of Systems: All systems reviewed & are unremarkable except as noted in HPI & below Physical Exam Constitutional: WD/WN, vitals as above + obese Eyes: + anicteric sclerae Neck: trachea midline, no thyromegaly Respiratory: normal respiratory effort, lungs clear to auscultation Cardiovascular: Rate/Rhythm: regular rate and + irregularly irregular Heart Sounds: + murmur (2/6 at the RUSB systolic) Chest (Breasts): Chest: normal inspection of chest Gastrointestinal (Abdomen): normal bowel sounds, soft, nontender, no hepatosplenomegaly Musculoskeletal: Extremities: extremities normal to inspection; no cyanosis and no clubbing Skin: no rashes, warm and dry Neurologic: moves all extremities and awake; no focal motor deficits Psychiatric: A+Ox3, euthymic affect Lymphatic: no lymphedema Results & Data ([facility]) Vital Signs (Past 12 Hours) Vital Signs Temp Pulse Resp BP Pulse Ox 09/18/19 15:21 36.4 C L 82 20 109/67 91 09/18/19 11:18 36.5 C 85 18 99/58 L 91 09/18/19 07:51 36.4 C L 95 H 17 151/83 H 91 Laboratory Results Lab results reviewed, creatinine 1.23 Troponin 0 0.2/0 0.3/0 0.2/0.2 LDL 108 Total cholesterol 165 HDL 36 TSH 4.44 PG Care Time/CCT Total # of Minutes Spent Total Time Spent with Patient: Total time spent is greater than 50% in coordination of care (as documented) at patient's floor/unit and/or counseling patient: Coding Level of Care Code 84661 Subseq Hosp Care Lvl 3 Diagnoses CHF (congestive heart failure) I50.9 Heart failure chronicity: acute Heart failure type: unspecified Atrial fibrillation I48.91 Abnormal EKG R94.31 Aortic stenosis I35.0 Non-ST elevation VT (NSTEMI) I21.4 Acquired hemolytic anemia D59.9 DVT prophylaxis Z29.9 (1) CHF (congestive heart failure) Heart failure chronicity: acute Heart failure type: unspecified Qualified Code(s): I50.9 - Heart failure, unspecified
[2019-09-18 19:35] LABS: Partial Thromboplastin Ratio 1.6; Partial Thromboplastin Time 42.8 Seconds (21.0-31.0)
[2019-09-18] MEDS: ASPIRIN 81 MG ECTAB PO SCH (20:11)
[2019-09-19 02:49] LABS: Partial Thromboplastin Ratio 2.2
[2019-09-19 02:56] LABS: Partial Thromboplastin Time 59.8 Seconds (21.0-31.0)
[2019-09-19] MEDS: HEPARIN SODIUM/DEXTROSE 25,000 UNITS/500 ML BAG IV SCH (06:50)
[2019-09-19 07:05] LABS: Basophils # (auto) 0.06 K/uL (0-0.2); Basophils % (auto) 0.8 %; Eosinophils # (auto) 0.25 K/uL (0-0.5); Eosinophils % (auto) 3.4 %; Hematocrit (blood only) 44.2 % (42-52); Hemoglobin 14.8 g/dL (14.0-18.0); Immature Granulocytes # (auto) 0.02 K/uL (0.00-0.02); Immature Granulocytes % (auto) 0.3 %; Lymphocytes # (auto) 1.43 K/uL (1.2-3.4); Lymphocytes % (auto) 19.6 %; Mean Corpuscular Hemoglobin 28.6 pg (25-34); Mean Corpuscular Hgb Conc 33.5 g/dL (32-36); Mean Corpuscular Volume 85.5 fL (80-100); Mean Platelet Volume 10.6 fL (7.4-10.4); Monocytes # (auto) 0.85 K/uL (0.11-0.59); Monocytes % (auto) 11.6 %; Neutrophils % (auto) 64.3 %; Platelet Count 164 K/uL (130-400); RDW Coefficient of Variation 15.5 % (11.5-14.5); RDW Standard Deviation 48.3 fL (36.4-46.3); Red Blood Count 5.17 M/uL (4.7-6.1); White Blood Count 7.31 K/uL (4.8-10.8)
[2019-09-19] MEDS: METOPROLOL TARTRATE 25 MG TAB PO SCH (08:37)
[2019-09-19] MEDS: FUROSEMIDE 40 MG in SYRINGE 0 ML IV SCH (08:37)
[2019-09-19 08:51] LABS: BUN Creatinine Ratio 30.1 (10-20); Calcium 9.2 mg/dl (8.5-10.1); Creatinine Clr Calc Pharmacy 53.5 ml/min; Est GFR (African American) 72.1; Est GFR (Non-African American) 62.2; Magnesium 2.3 mg/dl (1.8-2.4); Potassium 3.7 mmol/L (3.5-5.1)
[2019-09-19] MEDS ORDERED: POTASSIUM CHLORIDE 20 MEQ TABCR PO STA (10:24)
--- NOTE | 2019-09-19 12:49 | Cardiology Progress Note ---
Date of Service September 19, 2019 Assessment & Plan (1) CHF (congestive heart failure): 2. New onset atrial fibrillation with RVR 3. Elevated troponin 4. Moderate to severe aortic stenosis 5. COPD Patient remains chest pain-free. Persistent atrial fibrillation but heart rates reasonably controlled on current metoprolol. Asymptomatic ventricular pauses while in atrial fibrillation less than 5 seconds. On exam well-perfused with minimal residual congestion From a cardiac standpoint okay with discharge today Continue Lasix 40 mg daily. Despite pauses would continue current metoprolol, no indication for pacemaker at this time Can provide patient with additional DOAC samples on cardiology follow-up and hopefully can be financially feasible long-term Follow-up with cardiology in 2 to 3 weeks. Will need routine surveillance imaging of aortic valve. States would not want surgical AVR. Would have to think about TAVR. Admission and Anticipated Discharge Date Admission Date: September 17, 2019 Anticipated date of discharge: 09/19/19 Subjective Still feeling well. Denies any chest pain. Breathing near baseline. Denies any palpitations. Telemetry reviewedremains in atrial fibrillation, hRs improved, mostly below 100. Brief asymptomatic bradycardia with pauses 3 to 4 seconds Review of Systems Review of Systems: All systems reviewed & are unremarkable except as noted in HPI & below Physical Exam Physical Exam: General: Comfortable, no acute distress HEENT: Sclerae anicteric, mucous membranes moist Lungs: Few crackles left base Cardiac: Irregular irregular, 3-6 systolic ejection murmur Abdomen: Soft, nontender Extremities: Warm, well perfused, no edema Neuro: Nonfocal Psych: Alert orient x3, normal affect and mood Results & Data ([facility]) Vital Signs (Past 12 Hours) Vital Signs Temp Pulse Resp BP BP Pulse Ox 09/19/19 11:51 97.9 F 85 18 136/70 91 09/19/19 08:09 97.3 F L 85 18 122/72 90 09/19/19 03:40 97.5 F L 75 18 136/69 93 PG Care Time/CCT Total # of Minutes Spent Total Time Spent with Patient: Total time spent is greater than 50% in coordination of care (as documented) at patient's floor/unit and/or counseling patient: Coding Level of Care Code 56834 Subseq Hosp Care Lvl 3 Diagnoses CHF (congestive heart failure) I50.9 Heart failure chronicity: acute Heart failure type: unspecified (1) CHF (congestive heart failure) Heart failure chronicity: acute Heart failure type: unspecified Qualified Code(s): I50.9 - Heart failure, unspecified
[2019-09-19] MEDS ORDERED: RIVAROXABAN 20 MG TAB PO SCH (13:00)
--- NOTE | 2019-09-19 13:22 | Discharge Summary ---
Date of Service September 19, 2019 Admission HPI Per Admitting Provider This is AN 83-year-old [facility] male that presents today complaining of worsening shortness of breath. Patient is accompanied by family members but all are very poor historians. History documented as able. Patient tells me has been having shortness of breath for approximately 1 week. This does not appear to be associated with chest pain, weight gain, or other features. He denies any recent febrile illness. He states that he is on no medications and that he is only on "herbs". Thinks he may be "full of fluid ". Further history could not be elicited from the patient and family. I do look back at old records and see if the patient was seen by a [employer] outpatient setting. This was on July 09, 2019. At that time he had presented with CHF along with possible aortic stenosis. He was advised to go to the emergency room for further evaluation. The patient was agreeable at that time but when I questioned the patient about it he does not seem to recall this visit and did not seek medical attention at that time. Principal Diagnosis Acute on chronic diastolic CHF, Rapid atrial fibrillation Discharge Exam Constitutional WD/WN, vitals as above + obese Eyes + anicteric sclerae Neck trachea midline, no thyromegaly Respiratory normal respiratory effort, lungs clear to auscultation Cardiovascular Rate/Rhythm: regular rate and + irregularly irregular Heart Sounds: + murmur (2/6 at the RUSB systolic) Chest (Breasts) Chest: normal inspection of chest Gastrointestinal (Abdomen) normal bowel sounds, soft, nontender, no hepatosplenomegaly Musculoskeletal Extremities: extremities normal to inspection; no cyanosis and no clubbing Skin no rashes, warm and dry Neurologic moves all extremities and awake; no focal motor deficits Psychiatric A+Ox3, euthymic affect Lymphatic no lymphedema Discharge Data Allergies Allergy/AdvReac Type Severity Reaction Status Date / Time Penicillins Allergy Verified 09/24/19 12:16 Consultations 09/17/19 12:02 ED Decision to Admit Stat 09/17/19 15:44 Consult Cardiology Routine Ordered Studies CXR ECHO Hospital Course (1) CHF (congestive heart failure): With acute on chronic diastolic CHF, LVEF preserved Patient presented with patient with progressively worsening shortness of breath Had evidence of pulmonary edema on chest x-ray and lower extremity edema Historically has been noncompliant with medications. -Now significantly improved after several doses of IV Lasix and has achieved significant diuresis Echocardiogram with LVEF 40-45%, moderate to severe aortic stenosis Rapid atrial fibrillation also likely contributing He does add salt to his food and had no idea of his diagnosis of CHF in the past His EF is unchanged since 2011 as per cardiology notes TSH is upper limits of normal, fasting lipid panel actually does not look too ba d Appreciate cardiology consultation -Continue 1500 cc fluid restriction and daily weights at home -Continue Lasix 40 mg po once daily after discharge -continue KCl replacemetn daily at home -Patient agreeable to following up with cardiology at the [place] office with Dr. Clemens -Rate control as below for atrial fibrillation with metoprolol (2) Atrial fibrillation: Presented here with rapid atrial fibrillation likely contributing to acute on chronic diastolic CHF as above He had no real awareness of his atrial fibrillation Denies any syncope or presyncope Started on metoprolol 25 mg p.o. twice daily and has had some asymptomatic bradycardia with 3.5-second pauses overnight with rates into the high 20s and 30s at times -Cardiology following-okay with bradycardia for now On heparin drip for anticoagulation-discussed options with patient and he seemed more interested in going on a DOAC as he would not want PT/INR testing frequently-we will provide him with a 1 month free card and then he can get samples at the cardiology office if it is unaffordable at the pharmacy- discharging him on Xarelto - will follow-up with cardiology as an outpatient (3) Abnormal EKG: With inferior T wave inversions and lateral T wave inversions, left anterior fascicular block and right bundle branch block, atrial fibrillation Unchanged from previous Cardiology following Troponins mildly elevated and flat, no evidence of acute coronary syndrome, no chest pain at any time (4) Aortic stenosis: Moderate to severe on echocardiogram here No evidence of angina, syncope, with LVEF 40-45% as above which is unchanged since 2011 -To be followed as an outpatient (5) Non-ST elevation MO (NSTEMI): Elevated troponin secondary to myocardial demand ischemia in the setting of rapid atrial fibrillation -No need for ischemic evaluation at this time (6) Acquired hemolytic anemia: Noted, hgb here is normal -Follow CBC (7) DVT prophylaxis: Heparin drip and then converted to Xarelto prior to discharge Disposition-medically stable for dc to home Total Time Total Time Spent Total Time Spent (In Minutes): 40min Total Time Includes: Examination of the Patient, Discharge Planning and Medication Reconciliation Discharge Plan Discharge Items Patient Disposition: Home - Self-Care Reason For Visit: CHF, NSTEMI Discharge Diagnosis: Acute on chronic diastolic CHF, Rapid atrial fibrillation Condition on Discharge: Good Activity: Resume your previous activity Non-emergency contact: Primary Care Provider and Registered Safety Engineer Call non-emergency contact if: you have any medication questions and your symptoms worsen Follow-up/Referrals: Karel Clemens MD [Physician] - 09/27/19 10:00 am (Please follow up with Dr. Clemens within 2 weeks.) Shelly Arshad CRNP [Nurse Practitioner] - 09/24/19 12:30 pm (Please follow up with your family provider within 1-2 weeks.) PCP,NO [Primary Care Provider] - Diet: Low Sodium (2gm) Fluids: 1500ml (6 cups) Addtl Attending Provider Instructions: You were admitted and found to have excessive fluid in our lungs from congestive heart failure. You were treated with medication to make you urinate off extra fluid and had improvement. You should continue on a once daily water pill called furosemide for this. You were also found to have a rapid irregular heartbeat called atrial fibrillation and flutter. You were started on a medication to slow down your heart rate called metoprolol to be taken twice a day. You were also started on a blood thinner called Xarelto which is to be taken with dinner each evening. This will help to prevent you from having a stroke. If you have any issues with bleeding, you need to go to the hospital right away. You should follow up with the Registered Safety Engineer as will be scheduled for you. Call your Primary Care doctor if any of the following symptoms or problems start or get worse: * Shortness of breath or difficulty breathing * Wake up at night short of breath * Chest pain * Cough * Swelling of your hands, feet, or legs * More fatigued or tired with your normal activity * Palpitations - sudden fast heart beats WEIGHT * Weigh yourself every morning after using the bathroom. * Use the same scale. * Wear the same amount of clothing. * Write your weight down on a chart. * Call your Primary Care doctor if you gain more than 2-3 pounds in 1-2 days. MEDICATIONS * Use this discharge instruction sheet for medication instructions. * Take your medications at the time your doctor ordered. * Do not skip a dose of your medicines. * If you miss a dose of medicine, take it as soon as possible, but DO NOT DOUBLE A DOSE. * Read your medicine information when you get home. * Know all of the side effects of your medicine. If in doubt, ask your pharmacist * Call your Primary Care doctor's office if you have any side effects. * Be sure all of your doctors know what medicine and herbs you take (including cold, flu, and herbal medicine). Take the following with you to your follow-up doctor appointments: * Weight Chart * Medication List * List of questions Do not drink excessive alcohol, beer or wine. Pending Studies at Discharge: No Stand-Alone Forms: My Scicasts, Smoking Cessation Medications and DC Order Prescriptions: New metoprolol tartrate 25 mg Tablet 25 mg PO BID Qty: 60 RF: 0 Xarelto 20 mg Tablet 20 mg PO DAILY@1700 Qty: 30 RF: 0 furosemide 40 mg tablet 40 mg PO DAILY Qty: 30 RF: 0 Continued cyanocobalamin (vitamin B-12) [Vitamin B-12] 1,000 mcg Tablet 1,000 mcg PO BID RF: 0 aspirin [Aspir-81] 81 mg Tablet,Delayed Release (Dr/Ec) 81 mg PO HS RF: 0 coenzyme Q10 [CoQ-10] 100 mg Capsule 0 mg PO DAILY RF: 0 folic acid 0.8 mg Capsule 0.8 mg PO BID RF: 0 Enola Silk Powder 5 cap PO QAM RF: 0 Discontinued Potassium 99mg 99 mg PO BID RF: 0 Discharge Orders: Discharge Order (Routine); Ordered 09/19/19 Ordered By: Glo Sanders Admission Data Admit Date/Time: 09/17/19 13:56 Attending Provider: Glo Sanders Admit Provider: Perry Srivastava Primary Care Provider: PCP,NO Other Providers: Perry Srivastava ; Karel Clemens Other Interventions: Discharge Summary Assessment (RN) Last Done: 09/19/19 13:41 DC Date/Time DO NOT enter until pt leaves facility: 09/19/19 14:37 Coding Level of Care Code D/C Day Management >30 mins Diagnoses CHF (congestive heart failure) I50.9 Heart failure chronicity: acute Heart failure type: unspecified Atrial fibrillation I48.91 Abnormal EKG R94.31 Aortic stenosis I35.0 Non-ST elevation MO (NSTEMI) I21.4 Acquired hemolytic anemia D59.9 DVT prophylaxis Z29.9
--- NOTE | 2019-09-19 15:02 | Electrocardiogram Report ---
Test Reason : Blood Pressure : / mmHG Vent. Rate : 077 BPM Atrial Rate : 000 BPM P-R Int : 000 ms QRS Dur : 154 ms QT Int : 454 ms P-R-T Axes : 000 -67 209 degrees QTc Int : 513 ms Atrial fibrillation Right bundle branch block Left anterior fascicular block Bifascicular block T wave abnormality, consider lateral ischemia Abnormal ECG When compared with ECG of 18-SEP-2019 07:28, No significant change was found Confirmed by Ezra Sotelo ([id number]) on 09/19/2019 3:01:43 PM Referred By: REFERRED SELF Confirmed By:Derrick Sotelo
[2019-09-19] MEDS ORDERED: METOPROLOL TARTRATE 25 MG TAB PO SCH ×2 (21:00)
--- NOTE | 2019-09-24 12:05 | Coding Query ---
CODING QUERY To promote full compliance with coding requirements relating to patient care, provider participation is requested in all cases of cte teacher uncertainty. Please assist us with the question(s) below: Coding Question(s): Patient admitted with elevated Troponin, acute on chronic CHF and persistent (new) atrial fib. Documentation mentions elevated Troponin secondary to NSTEMI demand ischemia, no ischemic workup needed. To clarify the demand ischemia, please check below the diagnosis that you treated pertaining to the elevated Troponin. Thank you ! PATRICIA Holder [facility] Physician's Response(s): X__Demand ischemia MI Type 2 Demand ischemia Cannot clinically correlate the diagnosis that was treated Other : Please document: Principal Diagnosis: "that condition established after study, to be chiefly responsible for occasioning the admission of the patient to the hospital for care." Co-Existing Principal Diagnosis: "when two or more diagnoses equally meet the criteria for principal diagnosis as determined by the circumstances of admission, diagnostic work up, and/or therapy provided, and the Alphabetic Index, Tabular List, or another coding guideline does not provide sequencing direction, any one of the diagnoses may be sequenced first." "When the physician has documented what appears to be a current diagnosis in the body of the record, but has not included the diagnosis in the final diagnostic statement, the physician should be asked whether the diagnosis should be added." (Source Coding [facility] 2 QTR90. p3-4) [email or web address]
== END 2019-09-19 14:37 | disposition home or self-care (01) | DRG 308 ==
LOC: ED 10:23 → SUATTDRO 13:56 → 2S 15:02

== ENCOUNTER 2020-06-08 20:29 | Inpatient (IN) ==
[2020-06-08 21:22] LABS: Basophils # (auto) 0.01 K/uL (0-0.2); Basophils % (auto) 0.1 %; Eosinophils # (auto) 0.01 K/uL (0-0.5); Eosinophils % (auto) 0.1 %; Hematocrit (blood only) 43.2 % (42-52); Hemoglobin 13.8 g/dL (14.0-18.0); Immature Granulocytes # (auto) 0.04 K/uL (0.00-0.02); Immature Granulocytes % (auto) 0.6 %; Lymphocytes # (auto) 0.92 K/uL (1.2-3.4); Lymphocytes % (auto) 13.6 %; Mean Corpuscular Hemoglobin 26.7 pg (25-34); Mean Corpuscular Hgb Conc 31.9 g/dL (32-36); Mean Corpuscular Volume 83.6 fL (80-100); Mean Platelet Volume 10.2 fL (7.4-10.4); Monocytes # (auto) 0.52 K/uL (0.11-0.59); Monocytes % (auto) 7.7 %; Neutrophils # (auto) 5.25 K/uL (1.4-6.5); Neutrophils % (auto) 77.9 %; Platelet Count 156 K/uL (130-400); RDW Coefficient of Variation 17.2 % (11.5-14.5); RDW Standard Deviation 52.2 fL (36.4-46.3); Red Blood Count 5.17 M/uL (4.7-6.1); White Blood Count 6.75 K/uL (4.8-10.8)
[2020-06-08 21:26] LABS: Base Excess VBG -1.4 mEq/L; Oxygen Saturation VBG 72.1 %; pH VBG 7.4 (7.36-7.41)
[2020-06-08 21:32] LABS: INR 1.2 (0.9-1.1); Partial Thromboplastin Ratio 1.3; Partial Thromboplastin Time 37.1 Seconds (21.0-31.0); Prothrombin Time 12.3 Seconds (9.0-12.0)
[2020-06-08] MEDS ORDERED: ALBUMIN 25% 12.5 GM/50 ML VIAL IV ONE (21:35)
--- NOTE | 2020-06-08 21:35 | Emergency Department Note ---
Impression & Plan Pneumonia, Sepsis, Pleural effusion, Hypoxia, COVID-19 virus infection ED Provider Note NAME: TAL PATINO AGE: 84 SEX: M : [id number] ARRIVES VIA: Walk-In INFORMANT: Patient, the patient's significant other ED PROVIDER(S): Neri Valenzuela DO CHIEF COMPLAINT: Difficulty breathing HPI: The patient is an 84-year-old [facility] gentleman who presented to the emergency department through triage for an evaluation of shortness of breath. The patient has a history of pulmonary edema. The patient significant other states that he is been having trouble with lower extremity swelling as well as orthopnea. Since Tuesday he has been unable to lay flat. He has had similar episodes especially last spring. He does have a history of aortic stenosis as well as atrial fibrillation. The patient's symptoms were moderate to severe. He denies having any fever or exposure to COVID-19 but he does live in the [facility] community. The patient states his symptoms are significantly worsened with any ambulation as well as lying flat. He did not have any recent chest pain episodes. He denies having any nausea vomiting or black stools. He is not recently been seen by his primary care physician. ROS: See above HPI for pertinent positives & negatives. A total of 10 systems reviewed and were otherwise negative. PAST MEDICAL HISTORY: See Below PAST SURGICAL HISTORY: See Below FAMILY HISTORY: See Below SOCIAL HISTORY: See Below HOME MEDICATIONS: See Below ALLERGIES: See Below VITALS: See Below PHYSICAL EXAMINATION: GENERAL: The patient is awake and alert. The patient is very anxious appearing and appears to be in significant respiratory distress. EYES: The conjunctivae are clear. The pupils are round and reactive. EARS, NOSE, MOUTH AND THROAT: The nose is without any evidence of any deformity. NECK: The neck is nontender and supple. RESPIRATORY: Shallow and ineffective respirations were noted. Diminished breath sounds are noted at both bases. There were rales at both bases. CARDIOVASCULAR: Irregular rhythm was noted to auscultation. There was no definite murmur. GASTROINTESTINAL: The abdomen is soft. Abdomen is nontender. MUSCULOSKELETAL/EXTREMITIES: There is no evidence of gross deformity full range of motion is noted in the hips and shoulders. SKIN: Pedal edema was noted bilaterally. Venous stasis changes were noted. NEUROLOGIC: Patient is awake alert and oriented x3. MEDICAL DECISION MAKING: The patient is an 84-year-old [facility] male who presented to the emergency department with shortness of breath. The patient was very short of breath and dyspneic. He had signs of respiratory failure. The patient was treated with supplemental oxygen with some improvement of his symptoms. Pressure initially was acceptable but then started to drop. The patient has a history of CHF as well as valvular heart disease. For this reason aggressive fluid management was not thought to be helpful rather we gave the patient small boluses of fluid. He was also treated with IV steroids IV antibiotics and supplemental oxygen. He was reevaluated multiple times. Ultimately he was found to have signs of pneumonia as well as COVID-19 infection on chest x-ray and laboratory studies. I discussed the patient's laboratory and radiographic studies with him. I also discussed his case with the on-call [facility] hospitalist. They have agreed to evaluate the patient in the emergency department for further management and disposition. The patient is deciding what therapies he would like to have at this time. He appears to be managing his breathing much better now. Triage Nursing notes reviewed. Prior medical records reviewed Vital Signs: reviewed and remarkable for hypoxia, tachypnea, tachycardia, hypot ension. Differential diagnosis: Reactive airway disease, pneumonia, pneumothorax, COPD, CHF, infections, cardiac ischemia, pulmonary embolism, musculoskeletal, gastrointestinal, as well as other pathologies. ER treatment provided: See below Diagnostics interpreted by me: ECG: EKG was obtained in the emergency department. My interpretation is atrial fibrillation at 105 bpm. No PVCs were noted. Diffuse ST depressions were noted. LVH was noted by voltage criteria. Right bundle branch block pattern was noted. This was compared to a tracing from 09/19/2019. No significant changes were noted. Cardiac Monitoring: An order was placed for continuous cardiac monitoring. The m onitor shows a rate of 98 bpm with atrial fibrillation rhythm. Laboratory studies: As stated above and show below. Imaging studies: See below Consultation(s): [id number]: I discussed this case with Dr. Mcconnell. ED COURSE: Procedures: none PDMP:reviewed and no issues Critical Care: I have personally spent greater than 45 minutes of critical care time in the direct management of this patient. This includes bedside care, interpretation of diagnostic studies, and testing, discussion with consultants, patient, and family members, and other required patient management activities. This 45 minutes is in excess of all separately billable procedures. 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) Aortic stenosis Atrial fibrillation Diastolic dysfunction (05/01/11) Hemolytic anemia (05/01/11) History of pleural effusion (05/01/11) Systolic dysfunction (05/14/11) Surgical History History of appendectomy Social History Smoking Status: Never smoker Hx Alcohol Use: No Hx Substance Use: No Preferred Language: Argentine Communication Ability: Effective [employer] Member Required: No Beliefs That Will Affect Care: None Current Living Situation: Spouse and Family Feels Safe at Home: Yes Assistive Devices: Glasses Allergies Allergies Allergy/AdvReac Type Severity Reaction Status Date / Time Penicillins Allergy Unknown Unknown Verified 06/08/20 21:49 Home Meds Previous Rx's Medication Instructions Recorded metoprolol tartrate 25 mg tablet 25 mg PO BID #180 tab 10/08/19 apixaban 5 mg tablet 5 mg PO BID #60 tab 03/11/20 furosemide 40 mg tablet 40 mg PO BID #180 tab 05/01/20 Results & Data (ED) Vital Signs Vital Signs - 24 hr 06/08/20 20:29 06/08/20 20:40 06/08/20 20:48 Temperature 36.3 C L Temperature Source Oral Pulse Rate 122 H Pulse Rate [Apical] 109 H 109 H Respiratory Rate 32 H 46 H 40 H Respiratory Effort / Characteristics Non-Labored Spontaneous Respiratory Depth Normal Blood Pressure 146/68 H Blood Pressure [Left Arm] 113/67 Blood Pressure Mean 94 Blood Pressure Mean [Left Arm] 82 Pulse Oximetry 99 76 L 91 Oxygen Delivery Method Room Air Room Air Non-rebreather Oxygen Flow Rate 15 Sepsis Recent Fever Within 48 Hours No Sepsis New/Unexplained Change in Mental Status No Sepsis Action Taken by Nursing Physician Notified 06/08/20 20:53 06/08/20 20:54 06/08/20 20:56 Temperature Temperature Source Pulse Rate Pulse Rate [Apical] Respiratory Rate 40 H Respiratory Effort / Characteristics Spontaneous Labored Labored Respiratory Depth Blood Pressure Blood Pressure [Left Arm] Blood Pressure Mean Blood Pressure Mean [Left Arm] Pulse Oximetry 91 90 Oxygen Delivery Method Non-rebreather Non-rebreather Oxygen Flow Rate 15 15 Sepsis Recent Fever Within 48 Hours Sepsis New/Unexplained Change in Mental Status Sepsis Action Taken by Nursing 06/08/20 21:04 06/08/20 21:15 06/08/20 21:28 Temperature Temperature Source Pulse Rate 100 H 97 H Pulse Rate [Apical] 103 H Respiratory Rate 28 H 38 H 34 H Respiratory Effort / Characteristics Respiratory Depth Blood Pressure 77/49 L 85/54 L Blood Pressure [Left Arm] 95/47 L Blood Pressure Mean 62 73 Blood Pressure Mean [Left Arm] 63 Pulse Oximetry 96 95 96 Oxygen Delivery Method Non-rebreather Non-rebreather Non-rebreather Other Oxygen Flow Rate 15 15 15 Sepsis Recent Fever Within 48 Hours Sepsis New/Unexplained Change in Mental Status Sepsis Action Taken by Nursing 06/08/20 21:45 06/08/20 22:00 06/08/20 22:15 Temperature Temperature Source Pulse Rate 107 H 107 H 115 H Pulse Rate [Apical] Respiratory Rate 34 H 21 33 H Respiratory Effort / Characteristics Respiratory Depth Blood Pressure 85/60 L 95/49 L 76/59 L Blood Pressure [Left Arm] Blood Pressure Mean 69 78 63 Blood Pressure Mean [Left Arm] Pulse Oximetry 94 95 95 Oxygen Delivery Method Non-rebreather Oxygen Flow Rate 15 Sepsis Recent Fever Within 48 Hours Sepsis New/Unexplained Change in Mental Status Sepsis Action Taken by [facility] Medications Current Medication List: was personally reviewed by me Laboratory Data Attestation: I reviewed the patient's lab results. Result diagrams: 06/08/20 21:04 06/08/20 21:04 Lab Results 06/08/20 06/08/20 06/08/20 Range/Units 21:03 21:03 21:04 WBC 6.75 (4.8-10.8) K/uL RBC 5.17 (4.7-6.1) M/uL Hgb 13.8 L (14.0-18.0) g/dL Hct 43.2 (42-52) % MCV 83.6 (80-100) fL MCH 26.7 (25-34) pg MCHC 31.9 L (32-36) g/dL RDW Std Deviation 52.2 H (36.4-46.3) fL RDW Coeff of Luis 17.2 H (11.5-14.5) % Plt Count 156 (130-400) K/uL MPV 10.2 (7.4-10.4) fL Immature Gran % (Auto) 0.6 % Neut % (Auto) 77.9 % Lymph % (Auto) 13.6 % [place] % (Auto) 7.7 % Eos % (Auto) 0.1 % Baso % (Auto) 0.1 % Neut # (Auto) 5.25 (1.4-6.5) K/uL Lymph # (Auto) 0.92 L (1.2-3.4) K/uL [place] # (Auto) 0.52 (0.11-0.59) K/uL Eos # (Auto) 0.01 (0-0.5) K/uL Baso # (Auto) 0.01 (0-0.2) K/uL Immature Gran # (Auto) 0.04 H (0.00-0.02) K/uL PT (9.0-12.0) Seconds INR (0.9-1.1) APTT (21.0-31.0) Seconds PTT Ratio VBG pH (7.36-7.41) VBG pCO2 (38-50) mmHg VBG pO2 mmHg VBG HCO3 mmol/L VBG O2 Saturation % VBG Base Excess mEq/L Barometric Pressure mm/Hg Sodium (136-145) mmol/L Potassium (3.5-5.1) mmol/L Chloride (98-107) mmol/L Carbon Dioxide (21-32) mmol/L Anion Gap (3-11) BUN (7-18) mg/dl Creatinine (0.6-1.4) mg/dl Est Cr Clr Drug Dosing ml/min Est GFR ( Amer) Est GFR (Non-Af Amer) BUN/Creatinine Ratio (10-20) Glucose (70-99) mg/dl Lactate (0.4-2.0) mmol/L Calcium (8.5-10.1) mg/dl Magnesium (1.8-2.4) mg/dl Alkaline Phosphatase (45-117) U/L Total Protein (6.4-8.2) gm/dl Albumin (3.4-5.0) gm/dl Globulin (2.5-4.0) gm/dl Albumin/Globulin Ratio (0.9-2) Procalcitonin (0-0.5) ng/ml COVID-19 Eval [facility] SARS-CoV-2, RNA, NAAT POSITIVE A* (NEGATIVE) 06/08/20 06/08/20 06/08/20 Range/Units 21:04 21:04 21:04 WBC (4.8-10.8) K/uL RBC (4.7-6.1) M/uL Hgb (14.0-18.0) g/dL Hct (42-52) % MCV (80-100) fL MCH (25-34) pg MCHC (32-36) g/dL RDW Std Deviation (36.4-46.3) fL RDW Coeff of Luis (11.5-14.5) % Plt Count (130-400) K/uL MPV (7.4-10.4) fL Immature Gran % (Auto) % Neut % (Auto) % Lymph % (Auto) % [place] % (Auto) % Eos % (Auto) % Baso % (Auto) % Neut # (Auto) (1.4-6.5) K/uL Lymph # (Auto) (1.2-3.4) K/uL [place] # (Auto) (0.11-0.59) K/uL Eos # (Auto) (0-0.5) K/uL Baso # (Auto) (0-0.2) K/uL Immature Gran # (Auto) (0.00-0.02) K/uL PT 12.3 H (9.0-12.0) Seconds INR 1.2 H (0.9-1.1) APTT 37.1 H (21.0-31.0) Seconds PTT Ratio 1.3 VBG pH (7.36-7.41) VBG pCO2 (38-50) mmHg VBG pO2 mmHg VBG HCO3 mmol/L VBG O2 Saturation % VBG Base Excess mEq/L Barometric Pressure mm/Hg Sodium 136 (136-145) mmol/L Potassium 3.7 (3.5-5.1) mmol/L Chloride 102 (98-107) mmol/L Carbon Dioxide 26 (21-32) mmol/L Anion Gap 8.0 (3-11) BUN 35 H (7-18) mg/dl Creatinine 1.59 H (0.6-1.4) mg/dl Est Cr Clr Drug Dosing 37.2 ml/min Est GFR ( Amer) 45.8 Est GFR (Non-Af Amer) 39.6 BUN/Creatinine Ratio 22.0 H (10-20) Glucose 123 H (70-99) mg/dl Lactate 4.2 H* (0.4-2.0) mmol/L Calcium 8.4 L (8.5-10.1) mg/dl Magnesium 2.6 H (1.8-2.4) mg/dl Alkaline Phosphatase 109 (45-117) U/L Total Protein 8.3 H (6.4-8.2) gm/dl Albumin 3.5 (3.4-5.0) gm/dl Globulin 4.8 H (2.5-4.0) gm/dl Albumin/Globulin Ratio 0.7 L (0.9-2) Procalcitonin (0-0.5) ng/ml COVID-19 Eval Order SARS-CoV-2, RNA, NAAT (NEGATIVE) 06/08/20 06/08/20 Range/Units 21:04 21:04 WBC (4.8-10.8) K/uL RBC (4.7-6.1) M/uL Hgb (14.0-18.0) g/dL Hct (42-52) % MCV (80-100) fL MCH (25-34) pg MCHC (32-36) g/dL RDW Std Deviation (36.4-46.3) fL RDW Coeff of Luis (11.5-14.5) % Plt Count (130-400) K/uL MPV (7.4-10.4) fL Immature Gran % (Auto) % Neut % (Auto) % Lymph % (Auto) % [place] % (Auto) % Eos % (Auto) % Baso % (Auto) % Neut # (Auto) (1.4-6.5) K/uL Lymph # (Auto) (1.2-3.4) K/uL [place] # (Auto) (0.11-0.59) K/uL Eos # (Auto) (0-0.5) K/uL Baso # (Auto) (0-0.2) K/uL Immature Gran # (Auto) (0.00-0.02) K/uL PT (9.0-12.0) Seconds INR (0.9-1.1) APTT (21.0-31.0) Seconds PTT Ratio VBG pH 7.40 (7.36-7.41) VBG pCO2 38 (38-50) mmHg VBG pO2 40 mmHg VBG HCO3 23 mmol/L VBG O2 Saturation 72.1 % VBG Base Excess -1.4 mEq/L Barometric Pressure 729.9 mm/Hg Sodium (136-145) mmol/L Potassium (3.5-5.1) mmol/L Chloride (98-107) mmol/L Carbon Dioxide (21-32) mmol/L Anion Gap (3-11) BUN (7-18) mg/dl Creatinine (0.6-1.4) mg/dl Est Cr Clr Drug Dosing ml/min Est GFR ( Amer) Est GFR (Non-Af Amer) BUN/Creatinine Ratio (10-20) Glucose (70-99) mg/dl Lactate (0.4-2.0) mmol/L Calcium (8.5-10.1) mg/dl Magnesium (1.8-2.4) mg/dl Alkaline Phosphatase (45-117) U/L Total Protein (6.4-8.2) gm/dl Albumin (3.4-5.0) gm/dl Globulin (2.5-4.0) gm/dl Albumin/Globulin Ratio (0.9-2) Procalcitonin 0.07 (0-0.5) ng/ml COVID-19 Eval Order SARS-CoV-2, RNA, NAAT (NEGATIVE) Administered Medications Levofloxacin/Dextrose (Levaquin/D5w) 750 mg in 150 mls @ 100 mls/hr IV NOW STA Stop: 06/08/20 23:21 Last Admin: 06/08/20 22:05 Dose: 100 mls/hr Documented by: [id number] Discontinued Medications Dexamethasone (Dexamethasone Sod Inj 10 Mg/Ml Vial) 10 mg IV NOW ONE Stop: 06/08/20 21:53 Last Admin: 06/08/20 22:06 Dose: 10 mg Documented by: [id number] Albumin Human (Albumin 25%) 12.5 gm in 50 mls @ 50 mls/hr IV ONE ONE Stop: 06/08/20 22:34 Last Admin: 06/08/20 22:23 Dose: 50 mls/hr Documented by: [id number] Sodium Chloride (Nss) 500 mls @ 999 mls/hr IV .[id number] ONE Stop: 06/08/20 22:22 Last Admin: 06/08/20 22:06 Dose: 999 mls/hr Documented by: [id number] Imaging Data Attestation: I personally reviewed and interpreted this imaging study as follows: My Impression: 1 view chest x-ray was obtained in the emergency department. My interpretation is cardiomegaly with bilateral pleural effusions. There was bilateral lower lobe infiltrates noted. This was compared to a chest x-ray from September 172019. The interstitial component does appear increased however the bilateral pleural effusions are not new. Blood Pressure Blood Pressure Findings: Low blood pressure Discharge Plan Visit Data Chief Complaint: Shortness of Breath/Dyspnea Stated Complaint: FILLING UP WITH FLUID - SOB ED Provider: Neri Valenzuela Discharge Problem: Pneumonia, Sepsis, Pleural effusion, Hypoxia, COVID-19 virus infection Patient Disposition: Being Evaluated by Hospitalist Condition: Good Forms Stand Alone Forms: My [facility], Virtual Emergency Department, Important Visit Information Prescriptions Prescriptions: No Action metoprolol tartrate 25 mg tablet 25 mg PO BID Qty: 180 RF: 3 Eliquis 5 mg tablet 5 mg PO BID Qty: 60 RF: 2 furosemide 40 mg tablet 40 mg PO BID Qty: 180 RF: 3 Referrals Referrals: PCP,NO [Primary Care Provider] - Discharge Problem: Pneumonia Qualifiers: Pneumonia type: due to unspecified organism Laterality: bilateral Lung location: lower lobe of lung Qualified Code(s): J18.9 - Pneumonia, unspecified organism Sepsis Qualifiers: Sepsis type: sepsis due to unspecified organism Sepsis acute organ dysfunction status: unspecified Qualified Code(s): A41.9 - Sepsis, unspecified organism
[2020-06-08] MEDS ORDERED: levoFLOXacin/D5W 750 MG/150 ML BAG IV STA (21:52)
[2020-06-08] MEDS ORDERED: SODIUM CHLORIDE 0.9% 500 ML IV ONE (21:52)
[2020-06-08] MEDS ORDERED: DEXAMETHASONE SOD INJ 10 MG/ML VIAL IV ONE (21:52)
[2020-06-08 22:08] LABS: Albumin Globulin Ratio 0.7 (0.9-2); Albumin Level 3.5 gm/dl (3.4-5.0); Calcium 8.4 mg/dl (8.5-10.1); Creatinine Clr Calc Pharmacy 37.2 ml/min; Est GFR (African American) 45.8; Est GFR (Non-African American) 39.6; Globulin 4.8 gm/dl (2.5-4.0); Magnesium 2.6 mg/dl (1.8-2.4); Potassium 3.7 mmol/L (3.5-5.1); Total Protein 8.3 gm/dl (6.4-8.2)
[2020-06-08] MEDS ORDERED: SODIUM CHLORIDE 0.9% 1000ML 500 ML IV ONE (22:34)
[2020-06-08 22:42] LABS: Bilirubin,Total 0.8 mg/dl (0.2-1); Troponin I 0.229 ng/ml (0-0.045)
[2020-06-08] MEDS ORDERED: ALBUT/IPRATROP 3MG/0.5MG NEB 3 ML VIAL NEB PRN (23:45)
--- NOTE | 2020-06-08 23:59 | History & Physical Report ---
Date of Service June 08, 2020 Assessment & Plan (1) Pneumonia due to COVID-19 virus: Pneumonia due to COVID-19 virus/hypoxia/sepsis- Admit to monitored bed, negative pressure. Decadron 6 mg IV daily Remdesivir IV per protocol. Patient and family refuse convalescent plasma Ceftriaxone 1 g IV daily Azithromycin 500 mg IV daily Started on nasal cannula oxygen, and then was converted to nasal cannula high flow 100% FiO2 with improved saturation. DuoNebs every 2 hours as needed Present on Admission?: Yes (2) Hypoxia: As above Present on Admission?: Yes (3) Sepsis: Patient's blood pressure in the emergency department was in the mid 70s, which did respond to 50 g of albumin IV and to 500 cc boluses of normal saline. Present on Admission?: Yes (4) Non-ST elevation IA (NSTEMI): Non-STEMI/aortic stenosis/atrial fibrillation/CHF- Troponin elevated 0.229, likely secondary to stress of infection. The patient will be admitted to telemetry for serial cardiac enzymes, serial EKG's, cardiac rhythm monitoring and a 2-D echocardiogram with Dopplers. Hold metoprolol tartrate and furosemide due to hypotension. Continue apixaban 5 mg p.o. twice daily Present on Admission?: Yes (5) Aortic stenosis: See above Present on Admission?: Yes (6) Atrial fibrillation: See above Present on Admission?: Yes (7) CHF (congestive heart failure): Hold furosemide 40 mg p.o. twice daily due to hypotension Present on Admission?: Yes History of Present Illness Chief Complaint: The patient presents to the emergency department with complaint of worsening shortness of breath, lower extremity swelling with weeping of left leg, and inability to lay flat since 3 days ago. Primary Care Provider: NO PCP The patient is an 84-year-old male with a past medical history including aortic stenosis, atrial fibrillation, non-STEMI, CHF, hemolytic anemia, HFrEF, and history of pleural effusion. He presents with the symptoms as noted above. He has not had any recent travels or known sick exposures, but he does live in the [facility] community, there is presently an outbreak of COVID-19. Work-up in the emergency department included a a positive COVID-19 test, creatinine 1.59 with baseline 1.10, lactic acid 4.2, GFR 39.6 and troponin 0.229. Allergies Allergy/AdvReac Type Severity Reaction Status Date / Time Penicillins Allergy Unknown Unknown Verified 06/08/20 21:49 Home Medications Home Medications Medication Instructions Recorded Confirmed Type metoprolol tartrate 25 mg tablet 25 mg PO BID #180 tab 10/08/19 06/08/20 Rx apixaban 5 mg tablet 5 mg PO BID #60 tab 03/11/20 06/08/20 Rx furosemide 40 mg tablet 40 mg PO BID #180 tab 05/01/20 06/08/20 Rx 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) Aortic stenosis Atrial fibrillation Diastolic dysfunction (05/01/11) Hemolytic anemia (05/01/11) History of pleural effusion (05/01/11) Systolic dysfunction (05/14/11) Surgical History History of appendectomy Social History Smoking Status: Unknown if ever smoked Hx Alcohol Use: No Hx Substance Use: No Preferred Language: German Communication Ability: Impaired Dimension Specification Inspector Required: No Beliefs That Will Affect Care: None Current Living Situation: Spouse Other Information That Helps Us Care for You: No Feels Safe at Home: Yes Assistive Devices: Glasses Review of Systems Review of Systems: Unobtainable due to cognitive status Physical Exam Physical Exam: The patient is awake, intermittently confused, normocephalic and atraumatic, lying in bed and in mild to moderate respiratory distress. HEENT--PERRL, EOMI, mucous membranes and oropharynx dry. Neck--supple. No JVD. No bruits. Thyroid normal, trachea midline, no adenopathy. Heart--normal S1 and S2. No murmurs, rubs or gallops. Lungs--clear bilaterally, no respiratory distress, no accessory muscle use. Abdomen--normal bowel sounds and soft. Nontender. Nondistended, no hernias or masses, no organomegaly. Extremities--no cyanosis or clubbing. No edema. There are good distal pulses b/l. Dermatologic--normal skin turgor, normal color, no abnormal lymph nodes, no rash. Neurologic--cranial nerves II through XII grossly intact. Rheumatologic--normal range of motion. Psychiatric--normal affect. Results & Data Results & Data ([facility]) Vital Signs (Past 12 Hours) Vital Signs Temp Pulse Pulse Resp BP BP Pulse Ox 06/08/20 23:45 123 H 38 H 103/85 94 06/08/20 23:35 36 H 104/65 90 06/08/20 23:30 119 H 34 H 65/60 L 96 06/08/20 23:15 109 H 28 H 95/59 L 96 06/08/20 22:36 95 06/08/20 22:30 107 H 34 H 95/62 L 95 06/08/20 22:15 115 H 33 H 76/59 L 95 06/08/20 22:00 107 H 21 95/49 L 95 06/08/20 21:45 107 H 34 H 85/60 L 94 06/08/20 21:28 97 H 34 H 85/54 L 96 06/08/20 21:15 100 H 38 H 77/49 L 95 06/08/20 21:04 103 H 28 H 95/47 L 96 06/08/20 20:56 40 H 90 06/08/20 20:53 91 06/08/20 20:48 109 H 40 H 113/67 91 06/08/20 20:40 109 H 46 H 76 L 06/08/20 20:29 97.3 F L 122 H 32 H 146/68 H 99 Laboratory Results Laboratory Results WBC 6.75 K/uL (4.8-10.8) 06/08/20 21:04 RBC 5.17 M/uL (4.7-6.1) 06/08/20 21:04 Hgb 13.8 g/dL (14.0-18.0) L 06/08/20 21:04 Hct 43.2 % (42-52) 06/08/20 21:04 MCV 83.6 fL (80-100) 06/08/20 21:04 MCH 26.7 pg (25-34) 06/08/20 21:04 MCHC 31.9 g/dL (32-36) L 06/08/20 21:04 RDW Std Deviation 52.2 fL (36.4-46.3) H 06/08/20 21:04 RDW Coeff of Luis 17.2 % (11.5-14.5) H 06/08/20 21:04 Plt Count 156 K/uL (130-400) 06/08/20 21:04 MPV 10.2 fL (7.4-10.4) 06/08/20 21:04 Immature Gran % (Auto) 0.6 % 06/08/20 21:04 Neut % (Auto) 77.9 % 06/08/20 21:04 Lymph % (Auto) 13.6 % 06/08/20 21:04 Ogle % (Auto) 7.7 % 06/08/20 21:04 Eos % (Auto) 0.1 % 06/08/20 21:04 Baso % (Auto) 0.1 % 06/08/20 21:04 Neut # (Auto) 5.25 K/uL (1.4-6.5) 06/08/20 21:04 Lymph # (Auto) 0.92 K/uL (1.2-3.4) L 06/08/20 21:04 Ogle # (Auto) 0.52 K/uL (0.11-0.59) 06/08/20 21:04 Eos # (Auto) 0.01 K/uL (0-0.5) 06/08/20 21:04 Baso # (Auto) 0.01 K/uL (0-0.2) 06/08/20 21:04 Immature Gran # (Auto) 0.04 K/uL (0.00-0.02) H 06/08/20 21:04 PT 12.3 Seconds (9.0-12.0) H 06/08/20 21:04 INR 1.2 (0.9-1.1) H 06/08/20 21:04 APTT 37.1 Seconds (21.0-31.0) H 06/08/20 21:04 PTT Ratio 1.3 06/08/20 21:04 VBG pH 7.40 (7.36-7.41) 06/08/20 21:04 VBG pCO2 38 mmHg (38-50) 06/08/20 21:04 VBG pO2 40 mmHg 06/08/20 21:04 VBG HCO3 23 mmol/L 06/08/20 21:04 VBG O2 Saturation 72.1 % 06/08/20 21:04 VBG Base Excess -1.4 mEq/L 06/08/20 21:04 Barometric Pressure 729.9 mm/Hg 06/08/20 21:04 Sodium 136 mmol/L (136-145) 06/08/20 21:04 Potassium 3.7 mmol/L (3.5-5.1) 06/08/20 21:04 Chloride 102 mmol/L (98-107) 06/08/20 21:04 Carbon Dioxide 26 mmol/L (21-32) 06/08/20 21:04 Anion Gap 8.0 (3-11) 06/08/20 21:04 BUN 35 mg/dl (7-18) H 06/08/20 21:04 Creatinine 1.59 mg/dl (0.6-1.4) H 06/08/20 21:04 Est Cr Clr Drug Dosing 37.2 ml/min 06/08/20 21:04 Est GFR ( Amer) 45.8 06/08/20 21:04 Est GFR (Non-Af Amer) 39.6 06/08/20 21:04 BUN/Creatinine Ratio 22.0 (10-20) H 06/08/20 21:04 Glucose 123 mg/dl (70-99) H 06/08/20 21:04 Lactate 1.4 mmol/L (0.4-2.0) 06/08/20 22:54 Calcium 8.4 mg/dl (8.5-10.1) L 06/08/20 21:04 Magnesium 2.6 mg/dl (1.8-2.4) H 06/08/20 21:04 Total Bilirubin 0.8 mg/dl (0.2-1) 06/08/20 21:04 AST 43 U/L (15-37) H 06/08/20 21:04 ALT 21 U/L (12-78) 06/08/20 21:04 Alkaline Phosphatase 109 U/L (45-117) 06/08/20 21:04 Troponin I 0.229 ng/ml (0-0.045) H* 06/08/20 21:04 NT-Pro-B Natriuret Pep 4272 pg/ml (0-1800) H 06/08/20 21:04 Total Protein 8.3 gm/dl (6.4-8.2) H 06/08/20 21:04 Albumin 3.5 gm/dl (3.4-5.0) 06/08/20 21:04 Globulin 4.8 gm/dl (2.5-4.0) H 06/08/20 21:04 Albumin/Globulin Ratio 0.7 (0.9-2) L 06/08/20 21:04 Procalcitonin 0.07 ng/ml (0-0.5) 06/08/20 21:04 COVID-19 Eval Order Covid19 [facility]Now [facility] 06/08/20 21:03 SARS-CoV-2, RNA, NAAT POSITIVE (NEGATIVE) A* 06/08/20 21:03 Code Status & VTE Plan Code Status DNR/DNI VTE Prophylaxis Plan VTE Prophylaxis will be ordered: Yes PG Care Time/CCT Total # of Minutes Spent Total Time Spent with Patient: Total time spent is greater than 50% in coordination of care (as documented) at patient's floor/unit and/or counseling patient: Coding Level of Care Code 07140 Initial Inpt Care Lvl 3 Diagnoses Pneumonia due to COVID-19 virus U07.1; J12.89 Hypoxia R09.02 Sepsis A41.9 Sepsis acute organ dysfunction status: unspecified Sepsis type: sepsis due to unspecified organism Non-ST elevation IA (NSTEMI) I21.4 Aortic stenosis I35.0 Cardiac valve disease etiology: etiology unspecified Atrial fibrillation I48.0 Atrial fibrillation type: paroxysmal CHF (congestive heart failure) I50.9 Heart failure chronicity: acute Heart failure type: unspecified (1) Sepsis Sepsis acute organ dysfunction status: unspecified Sepsis type: sepsis due to unspecified organism Qualified Code(s): A41.9 - Sepsis, unspecified organism (2) Aortic stenosis Cardiac valve disease etiology: etiology unspecified Qualified Code(s): I35.0 - Nonrheumatic aortic (valve) stenosis (3) Atrial fibrillation Atrial fibrillation type: paroxysmal Qualified Code(s): I48.0 - Paroxysmal atrial fibrillation (4) CHF (congestive heart failure) Heart failure chronicity: acute Heart failure type: unspecified Qualified Code(s): I50.9 - Heart failure, unspecified
[2020-06-09] MEDS ORDERED: HALOPERIDOL LACTATE 5 MG/ML 1 ML VIAL ONE (00:22)
[2020-06-09] MEDS ORDERED: HALOPERIDOL LACTATE 5 MG/ML 1 ML VIAL IM STA ×2 (00:22→01:01)
[2020-06-09] MEDS ORDERED: ONDANSETRON INJ 2 MG/ML 2 ML VIAL IV PRN (00:36)
[2020-06-09] MEDS ORDERED: APIXABAN 5 MG TABLET PO SCH (00:36)
[2020-06-09] MEDS ORDERED: ACETAMINOPHEN 325 MG TAB PO PRN (00:36)
[2020-06-09] MEDS ORDERED: SODIUM CHLORIDE 0.9% 10ML FLUSH IV SCH (01:00)
[2020-06-09] MEDS ORDERED: REMDESIVIR 200 MG in SODIUM CHLORIDE 0.9% 210 ML IV ONE (01:00)
[2020-06-09] MEDS ORDERED: LORazepam 0.5 MG/1 ML VIAL IV STA (01:01)
--- NOTE | 2020-06-09 08:07 | XRay Report ---
XR chest 1V portable HISTORY: 84 years-old Male SEPSIS acute sepsis COMPARISON: Chest radiograph 09/17/2019, CT chest 09/03/2011 TECHNIQUE: Portable AP view of the chest FINDINGS: Cardiac silhouette is enlarged. Poorly vascular congestion with interstitial coarsening. No pneumotho rax. Small pleural effusions with midlung and bibasilar consolidation. Moderate emphysema. Degenerati ve changes of the shoulders and spine. IMPRESSION: 1. Cardiomegaly with pulmonary edema. 2. Right greater than left layering pleural effusions with midlung and bibasilar consolidation. Atele ctasis versus pneumonitis considered. ACT 112: Negative or not required by law. The above report was generated using voice recognition software. It may contain grammatical, syntax o r spelling errors. Electronically signed by: Sandro Ignacio M.D. 06/09/2020 8:06 AM
[2020-06-09] MEDS ORDERED: FUROSEMIDE 40 MG TAB PO SCH (09:00)
[2020-06-09] MEDS ORDERED: cefTRIAXone SODIUM 2,000 MG in DEXTROSE 5% 50 ML IV SCH (09:00)
[2020-06-09] MEDS ORDERED: DEXAMETHASONE SOD PHOSPHATE 6 MG in SYRINGE 0 ML IV SCH (09:00)
[2020-06-09] MEDS ORDERED: AZITHROMYCIN 500 MG in DEXTROSE 5% 250 ML IV SCH (09:00)
[2020-06-09] MEDS ORDERED: METOPROLOL TARTRATE 25 MG TAB PO SCH (09:00)
[2020-06-09] MEDS ORDERED: DEXAMETHASONE SOD INJ 10 MG/ML VIAL IV SCH (09:00)
--- NOTE | 2020-06-09 13:41 | Electrocardiogram Report ---
Test Reason : Blood Pressure : / mmHG Vent. Rate : 105 BPM Atrial Rate : 113 BPM P-R Int : 000 ms QRS Dur : 156 ms QT Int : 416 ms P-R-T Axes : 000 -62 064 degrees QTc Int : 549 ms Atrial fibrillation with rapid ventricular response Right bundle branch block Left anterior fascicular block Bifascicular block Minimal voltage criteria for LVH, may be normal variant T wave abnormality, consider lateral ischemia Abnormal ECG When compared with ECG of 19-SEP-2019 06:34, Nonspecific T wave abnormality, improved in Inferior leads T wave inversion less evident in Lateral leads Confirmed by Neri Padilla ([id number]) on 06/09/2020 1:41:36 PM Referred By: REFERRED SELF Confirmed By:Neri Padilla
[2020-06-10] MEDS ORDERED: REMDESIVIR 100 MG in SODIUM CHLORIDE 0.9% 230 ML IV SCH (01:00)
--- NOTE | 2020-06-12 11:35 | Death Pronouncement Note ---
Date of Service June 12, 2020 Pronouncement Note Admission Date Admission Date: June 08, 2020 Date and Time of Time of : 02:22 PCOD Preliminary cause of : Myocardial Infarction Contributing Factors (1) Pneumonia due to COVID-19 virus: (2) Hypoxia: (3) Sepsis: (4) Non-ST elevation PA (NSTEMI): (5) Aortic stenosis: (6) Atrial fibrillation: (7) CHF (congestive heart failure): Hospital Course Hospital Course: The patient was admitted from the ED to a monitored bed, negative pressure room with treatment protocol for COVID pneumonia and secondary bacterial pneumonia. He also had a nonSTEMI secondary to the above. Shortly after admission, the patient began to have more difficulty maintaining his BP, and HR gradually declined until he was PEA. He was a level V DNR/DNI. He was pronounced at 2:22 by nursing staff in the COVID treatment unit. His primary cause of was due to progressive changes from a Non-STEMI, with COVID and sepsis as main additional contributing causese. Additional Data Confirmation of : no pulse, no respirations, no heart sounds and pupils fixed and dilated Family: contacted Attending/PCP notified?: No Attending physician: Sam Mack MD Was code activated?: No Autopsy requested?: No garment examiner notified?: Yes Organ bank notified?: Yes Advance directives: Yes Coding Level of Care Code D/C Day Management <30 mins Diagnoses Pneumonia due to COVID-19 virus U07.1; J12.89 Hypoxia R09.02 Sepsis A41.9 Sepsis acute organ dysfunction status: unspecified Sepsis type: sepsis due to unspecified organism Non-ST elevation PA (NSTEMI) I21.4 Aortic stenosis I35.0 Cardiac valve disease etiology: etiology unspecified Atrial fibrillation I48.0 Atrial fibrillation type: paroxysmal CHF (congestive heart failure) I50.9 Heart failure chronicity: acute Heart failure type: unspecified
== END 2020-06-09 04:00 | disposition expired | DRG 871 ==
LOC: ED 20:29 → 2E 22:59